=== PATIENT | male | born 1960 | race Caucasian/White ===

== ENCOUNTER 2020-07-02 10:49 | Inpatient (IN) | payer BC, OTHER ==
[~2020-07-02] VITALS: Ht 180 cm; Wt 97.5 kg
[2020-07-02] MEDS ORDERED: ASPIRIN 81 MG CHEW (CHILDREN'S ASA) PO ONE (11:15)
[2020-07-02 11:24] LABS: BASOPHILS # (AUTO) 0.1 10^3/uL (0.0-0.1); BASOPHILS % (AUTO) 1 % (0-10); EOSINOPHILS # (AUTO) 0.1 10^3/uL (0.0-0.3); EOSINOPHILS % (AUTO) 1 % (0-10); HEMATOCRIT 44 % (40-54); HEMOGLOBIN 14.7 g/dL (13.3-17.7); LYMPHOCYTES # (AUTO) 1.6 10^3/uL (1.0-4.0); LYMPHOCYTES % (AUTO) 17 % (12-44); MEAN CORPUSCULAR HEMOGLOBIN 29 pg (25-34); MEAN CORPUSCULAR HGB CONC 33 g/dL (32-36); MEAN CORPUSCULAR VOLUME 87 fL (80-99); MEAN PLATELET VOLUME 10.9 fL (9.0-12.2); MONOCYTES # (AUTO) 0.7 10^3/uL (0.0-1.0); MONOCYTES % (AUTO) 7 % (0-12); NEUTROPHILS # (AUTO) 6.6 10^3/uL (1.8-7.8); NEUTROPHILS % (AUTO) 73 % (42-75); PLATELET COUNT 291 10^3/uL (130-400)
[2020-07-02 11:28] LABS: ALBUMIN 4.2 GM/DL (3.2-4.5); CHLORIDE 107 MMOL/L (98-107); POTASSIUM 3.6 MMOL/L (3.6-5.0); SODIUM 142 MMOL/L (135-145)
[2020-07-02 11:29] LABS: CALCIUM 8.8 MG/DL (8.5-10.1)
[2020-07-02 11:30] LABS: GLUCOSE 109 MG/DL (70-105); TOTAL PROTEIN 7.2 GM/DL (6.4-8.2)
[2020-07-02 11:31] LABS: CARBON DIOXIDE 23 MMOL/L (21-32); PROTHROMBIN TIME PATIENT 13.9 SEC (12.2-14.7)
[2020-07-02 11:32] LABS: BILIRUBIN,TOTAL 0.9 MG/DL (0.1-1.0)
[2020-07-02 11:33] LABS: ALKALINE PHOSPHATASE 82 U/L (40-136)
[2020-07-02 11:34] LABS: CREATININE SERUM 1.09 MG/DL (0.60-1.30); GFR ESTIMATED > 60
[2020-07-02 11:35] LABS: BUN/CREATININE RATIO 23
[2020-07-02 11:37] LABS: ALANINE AMINOTRANSFERASE 36 U/L (0-55); MAGNESIUM 1.9 MG/DL (1.6-2.4)
--- NOTE | 2020-07-02 11:51 | ED Chest Pain ---
General Chief Complaint: Chest Pain Stated Complaint: CP Nursing Triage Note: PT AMB TO ROOM 6 STATES HE HAD COVID IN MAY AND HAS HAD SOA AND FATIGUE SINCE. STATES HE HAS HAD SOME CHEST TIGHTNESS THAT OCCURS MOSTLY WHEN HE IS WALKING OR EXERTING HIMSELF. WENT TO URGENT CARE AND THEY SENT HIM HERE BECAUSE HIS EKG WAS ABNORMAL. Nursing Sepsis Screen: No Definite Risk Source: patient Exam Limitations: no limitations (BRUNA ESCOBEDO MED STUDENT) History of Present Illness Date Seen by Provider: Jul 02, 2020 Time Seen by Provider: 11:00 Initial Comments This is a 60 year old male presenting to the Emergency Department via ambulation for a chief complaint of chest tightness. The patient states he had Covid and ended his quarantine on June 14. During that time, he had shortness of breath. He's reported chest tightness and shortness of breath with exertion and walking that has been constant for the past week. He's tried albuterol which helps. He denies taking Aspirin today but has taken Alieve. He jokingly states he hasn't seen a physician for the past 40 years or quiet a while. Timing/Duration: 1 week (BRUNA ESCOBEDO MED STUDENT) Initial Comments Patient states he has no tightness or shortness of air unless he is exerting himself. He did use albuterol this morning but that did not give him lasting relief. He seemed to improve a little bit after his quarantine but over the past week has been feeling worse again. He has no known history of coronary artery disease but has not had any cardiac work-up in the past. (DEB HANSON MD) Allergies and Home Medications Allergies Coded Allergies: No Known Drug Allergies (Unverified , 07/02/20) Home Medications Cartilage/Collagen/Bor/Hyalur 1 Each Tablet, 1 EACH PO DAILY, (Reported) Docusate Sodium 100 Mg Capsule, 100 MG PO DAILY, (Reported) Naproxen Sodium 220 Mg Tablet, 220 MG PO TID PRN for PAIN-MILD (1-4), (Reported) Omeprazole 20 Mg Tab.rap.dr, 20 MG PO DAILY, (Reported) Patient Home Medication List Home Medication List Reviewed: Yes (DEB HANSON MD) Review of Systems Review of Systems Constitutional: no symptoms reported EENTM: No Symptoms Reported Respiratory: See HPI Cardiovascular: See HPI Gastrointestinal: No Symptoms Reported Genitourinary: No Symptoms Reported Musculoskeletal: no symptoms reported Skin: no symptoms reported Psychiatric/Neurological: No Symptoms Reported Endocrine: No Symptoms Reported Hematologic/Lymphatic: No Symptoms Reported (DEB HANSON MD) Past Wovjqnv-Ydvhyx-Uwvkwl Hx Past Med/Social Hx: Reviewed Nursing Past Med/Soc Hx (DEB HANSON MD) Patient Social History Alcohol Use: Regular Use Alcohol Beverage of Choice: Beer, Whiskey Drug of Choice: POT 2nd Hand Smoke Exposure: Yes Recent Infectious Disease Expo: No Recent Hopitalizations: No (BRUNA ESCOBEDO Recombine JOIE) Seasonal Allergies Seasonal Allergies: No (BRUNA ESCOBEDO) Past Medical History Respiratory: No Cardiac: No Neurological: No Genitourinary: No Gastroesophageal Reflux Musculoskeletal: No Endocrine: No HEENT: No Cancer: No Psychosocial: No Integumentary: No Blood Disorders: No (BRUNA ESCOBEDO) Physical Exam Vital Signs Vital Signs - First Documented 07/02/20 07/02/20 10:50 11:00 Temp 35.6 Pulse 84 Resp 16 B/P (MAP) 163/137 (146) Pulse Ox 94 O2 Delivery Room Air O2 Flow Rate 0 (DEB HANSON MD) Vital Signs Capillary Refill : Less Than 3 Seconds (BRUNA ESCOBEDO STUDENT) Height, Weight, BMI Height: '" Weight: lbs. oz. kg; 32.00 BMI Method: (BRUNA ESCOBEDO Recombine STUDENT) General Appearance: No Apparent Distress, WD/WN HEENT: PERRL/EOMI, Normal ENT Inspection Neck: Normal Inspection Respiratory: Lungs Clear, Normal Breath Sounds, No Accessory Muscle Use Cardiovascular: Regular Rate, Rhythm, No Edema, No Murmur, Normal Peripheral Pulses Gastrointestinal: Normal Bowel Sounds, Non Tender, Soft Extremity: Normal Inspection, Non Tender, No Calf Tenderness, No Pedal Edema, Other (Negative Matthew) Neurologic/Psychiatric: Alert, Oriented x3, No Motor/Sensory Deficits, Normal Mood/Affect, clam sorter II-XII Norm as Tested Skin: Normal Color, Warm/Dry (DEB HANSON MD) Progress/Results/Core Measures Results/Orders Lab Results Laboratory Tests Test 07/02/20 10:50 Range/Units White Blood Count 9.0 4.3-11.0 10^3/uL Red Blood Count 5.06 4.30-5.52 10^6/uL Hemoglobin 14.7 13.3-17.7 g/dL Hematocrit 44 40-54 % Mean Corpuscular Volume 87 80-99 fL Mean Corpuscular Hemoglobin 29 25-34 pg Mean Corpuscular Hemoglobin Concent 33 32-36 g/dL Red Cell Distribution Width 14.2 10.0-14.5 % Platelet Count 291 130-400 10^3/uL Mean Platelet Volume 10.9 9.0-12.2 fL Immature Granulocyte % (Auto) 0 % Neutrophils (%) (Auto) 73 42-75 % Lymphocytes (%) (Auto) 17 12-44 % Monocytes (%) (Auto) 7 0-12 % Eosinophils (%) (Auto) 1 0-10 % Basophils (%) (Auto) 1 0-10 % Neutrophils # (Auto) 6.6 1.8-7.8 10^3/uL Lymphocytes # (Auto) 1.6 1.0-4.0 10^3/uL Monocytes # (Auto) 0.7 0.0-1.0 10^3/uL Eosinophils # (Auto) 0.1 0.0-0.3 10^3/uL Basophils # (Auto) 0.1 0.0-0.1 10^3/uL Immature Granulocyte # (Auto) 0.0 0.0-0.1 10^3/uL Prothrombin Time 13.9 12.2-14.7 SEC INR Comment 1.0 0.8-1.4 Activated Partial Thromboplast Time 28 24-35 SEC D-Dimer 1.49 H 0.00-0.49 UG/ML Sodium Level 142 135-145 MMOL/L Potassium Level 3.6 3.6-5.0 MMOL/L Chloride Level 107 98-107 MMOL/L Carbon Dioxide Level 23 21-32 MMOL/L Anion Gap 12 5-14 MMOL/L Blood Urea Nitrogen 25 H 7-18 MG/DL Creatinine 1.09 0.60-1.30 MG/DL Estimat Glomerular Filtration Rate > 60 BUN/Creatinine Ratio 23 Glucose Level 109 H 70-105 MG/DL Calcium Level 8.8 8.5-10.1 MG/DL Corrected Calcium 8.6 8.5-10.1 MG/DL Magnesium Level 1.9 1.6-2.4 MG/DL Total Bilirubin 0.9 0.1-1.0 MG/DL Aspartate Amino Transf (AST/SGOT) 32 5-34 U/L Alanine Aminotransferase (ALT/SGPT) 36 0-55 U/L Alkaline Phosphatase 82 40-136 U/L Myoglobin 138.5 H 10.0-92.0 NG/ML Troponin I 0.044 H <0.028 NG/ML C-Reactive Protein High Sensitivity 1.52 H 0.00-0.50 MG/DL B-Type Natriuretic Peptide 1776.6 H <100.0 PG/ML Total Protein 7.2 6.4-8.2 GM/DL Albumin 4.2 3.2-4.5 GM/DL Procalcitonin 0.04 <0.10 NG/ML (DEB HANSON MD) My Orders Orders - DEB HANSON MD Aspirin Chewable Tablet (Baby Aspirin Ch (07/02/20 11:15) Fibrin Degradation Products (07/02/20 11:04) Hs C Reactive Protein (07/02/20 11:04) Procalcitonin (Pct) (07/02/20 11:04) Cbc With Automated Diff (07/02/20 11:17) Magnesium (07/02/20 11:17) Chest 1 View, Ap/Pa Only (07/02/20 11:17) Ekg Tracing (07/02/20 11:17) Comprehensive Metabolic Panel (07/02/20 11:17) Myoglobin Serum (07/02/20 11:17) Protime With Inr (07/02/20 11:17) Partial Thromboplastin Time (07/02/20 11:17) O2 (07/02/20 11:17) Monitor-Rhythm Ecg Trace Only (07/02/20 11:17) Lipid Panel (07/03/20 05:00) Ed Iv/Invasive Line Start (07/02/20 11:17) Troponin I (07/02/20 11:17) Ct Angio Chest W (07/02/20 11:55) Iohexol Injection (Omnipaque 350 Mg/Ml 1 (07/02/20 12:15) Received Contrast (Hold Metformin- Contr (07/02/20 12:15) Sodium Chloride Flush (Catheter Flush Sy (07/02/20 12:15) Ns (Ivpb) (Sodium Chloride 0.9% Ivpb Bag (07/02/20 12:15) BNP (07/02/20 13:15) Echo W Doppler/Color Flow (07/02/20 13:52) Metoprolol Succinate (Xl) Tab (Toprol Xl (07/02/20 14:00) (DEB HANSON MD) Medications Given in ED Current Medications Medications Dose Ordered Sig/Mario Route Start Time Stop Time Status Last Admin Dose Admin Aspirin 324 mg ONCE ONCE PO 07/02/20 11:15 07/02/20 11:16 DC 07/02/20 11:19 324 MG Iohexol 100 ml ONCE ONCE IV 07/02/20 12:15 07/02/20 12:16 DC 07/02/20 12:51 83 ML Sodium Chloride 10 ml NEEDED PRN IV 07/02/20 12:15 07/02/20 15:45 DC 07/02/20 12:51 10 ML Sodium Chloride 100 ml ONCE ONCE IV 07/02/20 12:15 07/02/20 12:16 DC 07/02/20 12:51 80 ML (DEB HANSON MD) Vital Signs/I&O 07/02/20 07/02/20 10:50 11:00 Temp 35.6 Pulse 84 Resp 16 B/P (MAP) 163/137 (146) Pulse Ox 94 O2 Delivery Room Air Room Air O2 Flow Rate 0 (DEB HANSON MD) Blood Pressure Mean: 146 Progress Progress Note : Time: 11:55 Progress Note - Patient was given chewable Aspirin. EKG was taken due to his abnormal EKG in the walk-in clinic. An IV line has been established. Troponin is elevated. D- dimer was slightly elevated. CXR was ordered, results pending. (BRUNA ESCOBEDO MED STUDENT) Progress Note : Progress Note CT angiogram showed effusion and some groundglass opacity but no pulmonary emboli. Patient was additionally treated with Toprol-XL. I discussed the case with Dr. Dela Cruz and Dr. bAdi. Patient will be admitted for observation. Serial troponin will be obtained. An echocardiogram is being obtained in the ER. (DEB HANSON MD) Initial ECG Impression Date: Jul 02, 2020 Initial ECG Impression Time: 10:28 Initial ECG Rate: 83 Comment Sinus rhythm with multiple PVCs. Repolarization abnormality likely representing LVH. No definitive ST elevation. (DEB HANSON MD) Diagnostic Imaging Diagonstic Imaging: CT Plain Films/CT/US/NM/MRI: chest Comments NAME: JORGE TEIXEIRA [facility] REC#: [id number] PT STATUS: REG ER : 1960 PHYSICIAN: DEB HANSON MD ADMIT DATE: 07/02/20/ER Draft Date of Exam:07/02/20 CT ANGIO CHEST W PROCEDURE: CT angiography of the chest with contrast. TECHNIQUE: Multiple contiguous axial images were obtained through the chest after uneventful bolus administration of intravenous contrast. 3D reconstructed CTA MIP acquisitions were also performed. Auto Exposure Controls were utilized during the CT exam to meet ALARA standards for radiation dose reduction. INDICATION: Patient had COVID in May, now shortness of breath with exertion. FINDINGS: There are no intraluminal pulmonary arterial filling defects. There were no findings of pulmonary arterial embolus. The thoracic aorta is patent and nonaneurysmal. There are bilateral pleural effusions greater right nonloculated to a depth maximal 2.7 cm. Some mild perihilar septal thickening and mild scattered groundglass opacities greatest in the lower lobes. No bronchiectasis blebs bullous disease or air cysts. Lung volumes symmetric and normal. The visualized upper abdomen unremarkable. IMPRESSION: Bilateral small effusions, groundglass density and septal thickening may be the sequelae of COVID or reflect pulmonary edema. No pneumothorax. Negative for PE. Dictated on workstation # [id number] Dict: 07/02/20 1256 Trans: 07/02/20 1321 [facility] [id number] Interpreted by: LAURA DE SOUZA Electronically signed by: Time of Consult: 12:56 Diagonstic Imaging: Xray Plain Films/CT/US/NM/MRI: chest Comments NAME: JORGE TEIXEIRA [facility] REC#: [id number] PT STATUS: REG ER : 1960 PHYSICIAN: DEB HANSON MD ADMIT DATE: 07/02/20/ER Signed Date of Exam:07/02/20 CHEST 1 VIEW, AP/PA ONLY EXAMINATION: Chest 1 view, ap/pa only. INDICATION: Shortness of air and fatigue. COMPARISON: None available. FINDINGS: Abnormal masslike opacity in the right perihilar region. No pleural effusion or pneumothorax. The heart is enlarged. Interlobular septal thickening is present. IMPRESSION: 1. Abnormal masslike opacity in the right perihilar region may be due to summation of pulmonary vasculature. However, CT chest with IV contrast is recommended to evaluate the possibility of mass or lymphadenopathy 2. Cardiomegaly with interstitial opacities suggests mild pulmonary edema. Dictated by: Dictated on workstation # [id number] Dict: 07/02/20 1147 Trans: 07/02/20 1205 [facility] [id number] Interpreted by: EUSEBIA COLLADO MD Electronically signed by: EUSEBIA COLLADO MD 07/02/20 1205 Time of Consult: 11:47 (BRUNA ESCOBEDO) Comments CT angiogram reviewed by me and report reviewed. Comments Chest x-ray viewed by me and report reviewed. (DEB HANSON MD) Departure Communication (Admissions) Time/Spoke to Admitting Phy: 13:50 Dr. Abdi Time/Spoke to Consulting Phy: 11:55 Dr. Martínez (DEB HANSON MD) Impression Primary Impression: Dyspnea on exertion Additional Impression: Chest tightness Disposition: ADMITTED INPATIENT Condition: Stable Admissions Decision to Admit Reason: Admit from ER (General) Decision to Admit/Date: Jul 02, 2020 Time/Decision to Admit Time: 11:55 (DEB HANSON MD) Departure-Patient Inst. Referrals: NO,LOCAL PHYSICIAN (PCP/Family) Primary Care Physician BRUNA ESCOBEDO STUDENT Jul 02, 2020 11:51 DEB HANSON MD Jul 02, 2020 14:19
[2020-07-02] MEDS ORDERED: HOLD METFORMIN - RECEIVED CONTRAST 20 ML VIAL IV SCH (12:15)
[2020-07-02] MEDS ORDERED: CATHETER FLUSH 10 ML SYR IV PRN ×2 (12:15→15:45)
[2020-07-02] MEDS ORDERED: NS 100 ML (IVPB) BAG IV ONE (12:15)
[2020-07-02] MEDS ORDERED: IOHEXOL 350 MG/ML 100 ML (OMNIPAQUE 350) VIAL IV ONE (12:15)
--- NOTE | 2020-07-02 13:22 | Diagnostic Imaging Report ---
PROCEDURE: CT angiography of the chest with contrast. TECHNIQUE: Multiple contiguous axial images were obtained through the chest after uneventful bolus administration of intravenous contrast. 3D reconstructed CTA MIP acquisitions were also performed. Auto Exposure Controls were utilized during the CT exam to meet ALARA standards for radiation dose reduction. INDICATION: Patient had COVID in May, now shortness of breath with exertion. FINDINGS: There are no intraluminal pulmonary arterial filling defects. There were no findings of pulmonary arterial embolus. The thoracic aorta is patent and nonaneurysmal. There are bilateral pleural effusions greater right nonloculated to a depth maximal 2.7 cm. Some mild perihilar septal thickening and mild scattered groundglass opacities greatest in the lower lobes. No bronchiectasis blebs bullous disease or air cysts. Lung volumes symmetric and normal. The visualized upper abdomen unremarkable. IMPRESSION: Bilateral small effusions, groundglass density and septal thickening may be the sequelae of COVID or reflect pulmonary edema. No pneumothorax. Negative for PE. Dictated by: Dictated on workstation # [id number]
[2020-07-02] MEDS ORDERED: meTOproloL SUCCINATE 50 MG (TOPROL XL) TAB PO SCH (14:00)
--- NOTE | 2020-07-02 14:45 | Consultation-Cardiology ---
HPI-Cardiology Cardiology Consultation: Date of Consultation 07/02/20 Time Seen by a Provider: 15:25 Date of Admission 07-02-20 Attending Physician Thao Abdi MD Admitting Physician No,Local Physician Consulting Physician Thomas Martínez MD HPI: Chief Complaint: Progressive dyspnea Elevated troponin Mr. Teixeira is a 60yr old male admitted to 418 form the ED with increasing SOB and chest tightness. He reports he was diagnosed with COVID in late May 2020. He just returned to work recently. 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 He reports over the last week he has had progressive SOB with orthopnea. He reports chest tightness with assoc SOB with minimal exertion. He states the chest tightness resolves with rest. He denies any c/o palpitations, syncope or near syncope. No c/o LE swelling. No c/o recent n/v/d. No c/o recent fever or chills. He states he takes Aleeve daily for joint and back pain. He reports he has not been seen by a physician in 10 yrs. Review of Systems-Cardiology Review of Systems Constitutional: No chills, No fever; malaise Eyes: No vision change Ears/Nose/Throat: No recent hearing loss Respiratory: As described under HPI Cardiovascular: As described under HPI Gastrointestinal: constipation; No diarrhea, No nausea, No vomiting Genitourinary: no symptoms reported Musculoskeletal: joint pain Skin: No rash on exposed areas, No ulcerations on exposed areas Psychiatric/Neurological: No anxiety, No depression, No seizure, No focal w eakness, No syncope Hematologic: No bleeding abnormalities JMT-Htxzok-Xcdhzp Hx Patient Social History 2nd Hand Smoke Exposure: Yes Past Medical History PMH As described under Assessment. Family Medical History Family Medical History: He reports his mother had CAD and CHF. Allergies and Home Medications Allergies Coded Allergies: No Known Drug Allergies (Unverified , 07/02/20) Home Medications Aspirin 81 Mg Tablet., 81 MG PO DAILY Prescribed by: ANA LAURA GARZA on 07/05/20 1225 Cartilage/Collagen/Bor/Hyalur 1 Each Tablet, 1 EACH PO DAILY, (Reported) Carvedilol 12.5 Mg Tablet, 12.5 MG PO BID Prescribed by: ANA LAURA GARZA on 07/05/20 1225 Docusate Sodium 100 Mg Capsule, 100 MG PO DAILY, (Reported) Enalapril Maleate 10 Mg Tablet, 10 MG PO BID Prescribed by: ANA LAURA GARZA on 07/05/20 1225 Furosemide 40 Mg Tablet, 40 MG PO DAILY Prescribed by: ANA LAURA GARZA on 07/05/20 1225 Naproxen Sodium 220 Mg Tablet, 220 MG PO TID PRN for PAIN-MILD (1-4), (Reported) Omeprazole 20 Mg Tab.rap.dr, 20 MG PO DAILY, (Reported) Potassium Chloride 10 Meq Tablet.er, 10 MEQ PO BID WITH MEALS Prescribed by: ANA LAURA GARZA on 07/05/20 1225 Physical Exam-Cardiology Physical Exam Vital Signs/I&O 07/07/20 00:00 Intake Total 1200 ml Balance 1200 ml Capillary Refill : Less Than 3 Seconds Constitutional: AAO x 3, well-developed, well-nourished HEENT: PERRL, hearing is well preserved, oral hygience is good Neck: No carotid bruit; carotid pulses are 2 + bilaterally Respiratory: No accessory muscle use, No respiratory distress; chest expansion is symmetric, chest is bilaterally symmetric, other (dyspneic with minimal activity and conversation; diminished lower lobes bilat) Cardiovascular: regular rate-rhythm; No JVD; S1 and S2, systolic murmur Gastrointestinal: No tender; soft, round, audible bowel sounds Extremities: no lower extremity edema bilateral Neurologic/Psychiatric: grossly intact (moves all extremities) Skin: No rash on exposed areas, No ulcerations on exposed areas Data Review Labs Microbiology 07/03/20 MRSA Screen - Final, Complete MRSA not isolated Radiology NAME: JORGE TEIXEIRA [facility] REC#: [id number] PT STATUS: REG ER : 1960 PHYSICIAN: DEB HANSON MD ADMIT DATE: 07/02/20/ER Draft Date of Exam:07/02/20 CT ANGIO CHEST W PROCEDURE: CT angiography of the chest with contrast. TECHNIQUE: Multiple contiguous axial images were obtained through the chest after uneventful bolus administration of intravenous contrast. 3D reconstructed CTA MIP acquisitions were also performed. Auto Exposure Controls were utilized during the CT exam to meet ALARA standards for radiation dose reduction. INDICATION: Patient had COVID in May, now shortness of breath with exertion. FINDINGS: There are no intraluminal pulmonary arterial filling defects. There were no findings of pulmonary arterial embolus. The thoracic aorta is patent and nonaneurysmal. There are bilateral pleural effusions greater right nonloculated to a depth maximal 2.7 cm. Some mild perihilar septal thickening and mild scattered groundglass opacities greatest in the lower lobes. No bronchiectasis blebs bullous disease or air cysts. Lung volumes symmetric and normal. The visualized upper abdomen unremarkable. IMPRESSION: Bilateral small effusions, groundglass density and septal thickening may be the sequelae of COVID or reflect pulmonary edema. No pneumothorax. Negative for PE. Dictated on workstation # [id number] Dict: 07/02/20 1256 Trans: 07/02/20 1321 [facility] [id number] Interpreted by: LAURA DE SOUZA Electronically signed by: A/P-Cardiology Assessment/Admission Diagnosis Acute systolic CHF Dilated cardiomyopathy with LVEF 25-30%. Mod diffuse hypokinesis. LA mild to m od dilatation. Mod MR. Mod to severe TR. PASP 55-60 mmHg. per echocardiogram of 07-02-20 Pulmonary hypertension Minimally elevated troponin prob Type 2 ND H/O COVID (+) May 2020 GERD Chronic joint/back pain Marijuana use - cessation advised Discussion and Recomendations Dilated cardiomyopathy - treat with IV diuretics, add ROBYN (-), change BB to carvedilol - titrate doses to tolerance Lovenox DVT prophylaxis HTN - tx as noted above Minimally elevated troponin, likely Type 2 ND Continue ASA Monitor lab Advise sleep studies as an out pt Advise cessation of marijuana use Further recs will be based on his hospital course We would like to thank medical services for this consult YARELI CHERRY Jul 02, 2020 14:45
[2020-07-02 15:35] VITALS: BP 189/104
[2020-07-02] MEDS ORDERED: ONDANSETRON 4 MG/2 ML (SDV) Z0FRAN IVP PRN (15:45)
[2020-07-02] MEDS ORDERED: morphine INJ 4 MG/ML 1 ML (VIAL/SYRINGE) IV PRN (15:45)
[2020-07-02] MEDS ORDERED: NITROGLYCERIN 0.4 MG SL TABS BTL 25'S SL PRN (15:45)
[2020-07-02] MEDS ORDERED: DOCU-238 PO (15:47)
[2020-07-02] MEDS ORDERED: CART1TAB5 PO (15:47)
[2020-07-02] MEDS ORDERED: OMEP-401 PO (15:47)
[2020-07-02] MEDS ORDERED: NAPR220T66 PO (15:47)
--- NOTE | 2020-07-02 15:47 | NUR ---
SPOKE WITH PT TO COMPLETE THE MED REC PT DENIES TAKING ANY PRESCRIPTION MEDICATIONS OTC MEDS: SHANNAN JAMIL [facility] STOOL SOFTENER
[2020-07-02] MEDS ORDERED: FUROSEMIDE 40 MG/4 ML INJ (LASIX) IVP NR (16:00)
[2020-07-02] MEDS ORDERED: lisINopril 20 MG (PRINIVIL) TABLET PO NR (16:15)
[2020-07-02] MEDS ORDERED: lisINopril 40 MG (PRINIVIL) TABLET PO ONE (16:15)
[2020-07-02] MEDS ORDERED: KCL 20 MEQ TAB (K-DUR) PO NR (16:15)
--- NOTE | 2020-07-02 16:59 | Consultation-Cardiology ---
HPI-Cardiology Cardiology Consultation: Date of Consultation 07/02/20 Time Seen by a Provider: 16:20 Date of Admission Attending Physician Thao Abdi MD Admitting Physician No,Local Physician Consulting Physician LUKASZ CONNELL MD, MA, FACP, FACC, FSCAI, CCDS HPI: Chief Complaint: Reason for consultation: Progressive dyspnea, elevated troponin HPI Mr. Gutierrez is a 60yr old male admitted to 418 form the ED with increasing SOB and chest tightness. He reports he was diagnosed with COVID in late May 2020. He just returned to work recently. 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 He reports over the last week he has had progressive SOB with orthopnea. He reports chest tightness with assoc SOB with minimal exertion. He states the chest tightness resolves with rest. He denies any c/o palpitations, syncope or near syncope. No c/o LE swelling. No c/o recent n/v/d. No c/o recent fever or chills. He states he takes Aleeve daily for joint and back pain. He reports he has not been seen by a physician in 10 yrs. Review of Systems-Cardiology Review of Systems Constitutional: No chills, No fever; malaise Eyes: No vision change Ears/Nose/Throat: No recent hearing loss Respiratory: As described under HPI Cardiovascular: As described under HPI Gastrointestinal: constipation; No diarrhea, No nausea, No vomiting Genitourinary: no symptoms reported Musculoskeletal: joint pain Skin: No rash on exposed areas, No ulcerations on exposed areas Psychiatric/Neurological: No anxiety, No depression, No seizure, No focal weakness, No syncope Hematologic: No bleeding abnormalities AFM-Axzexe-Jupwyr Hx Patient Social History Smoking Status: Former Smoker 2nd Hand Smoke Exposure: Yes Have you traveled recently?: No Alcohol Use?: Yes Substance type: Marijuana Pt feels they are or have been: No Past Medical History PMH As described under Assessment. Family Medical History Family Medical History: He reports his mother had CAD and CHF. Allergies and Home Medications Allergies Coded Allergies: No Known Drug Allergies (Unverified , 07/02/20) Home Medications Cartilage/Collagen/Bor/Hyalur 1 Each Tablet, 1 EACH PO DAILY, (Reported) Docusate Sodium 100 Mg Capsule, 100 MG PO DAILY, (Reported) Naproxen Sodium 220 Mg Tablet, 220 MG PO TID PRN for PAIN-MILD (1-4), (Reported) Omeprazole 20 Mg Tab.rap.dr, 20 MG PO DAILY, (Reported) Patient Home Medication List Home Medication List Reviewed: Yes Physical Exam-Cardiology Physical Exam Vital Signs/I&O 07/02/20 07/02/20 07/02/20 07/02/20 10:50 11:00 15:16 15:35 Temp 35.6 35.6 Pulse 84 62 92 Resp 16 18 22 B/P (MAP) 163/137 (146) 135/102 189/104 (132) Pulse Ox 94 91 97 O2 Delivery Room Air Room Air Room Air Room Air O2 Flow Rate 0 Capillary Refill : Less Than 3 Seconds Constitutional: AAO x 3, well-developed, well-nourished HEENT: PERRL, hearing is well preserved, oral hygience is good Neck: No carotid bruit; carotid pulses are 2 + bilaterally Respiratory: No accessory muscle use, No respiratory distress; chest expansion is symmetric, chest is bilaterally symmetric, other (dyspneic with minimal activity and conversation; diminished lower lobes bilat) Cardiovascular: regular rate-rhythm; No JVD; S1 and S2, systolic murmur Gastrointestinal: No tender; soft, round, audible bowel sounds Extremities: no lower extremity edema bilateral Neurologic/Psychiatric: grossly intact (moves all extremities) Skin: No rash on exposed areas, No ulcerations on exposed areas Data Review Labs Laboratory Tests 07/02/20 10:50: White Blood Count 9.0, Red Blood Count 5.06, Hemoglobin 14.7, Hematocrit 44, Mean Corpuscular Volume 87, Mean Corpuscular Hemoglobin 29, Mean Corpuscular Hemoglobin Concent 33, Red Cell Distribution Width 14.2, Platelet Count 291, Mean Platelet Volume 10.9, Immature Granulocyte % (Auto) 0, Neutrophils (%) (Auto) 73, Lymphocytes (%) (Auto) 17, Monocytes (%) (Auto) 7, Eosinophils (%) (Auto) 1, Basophils (%) (Auto) 1, Neutrophils # (Auto) 6.6, Lymphocytes # (Auto) 1.6, Monocytes # (Auto) 0.7, Eosinophils # (Auto) 0.1, Basophils # (Auto) 0.1, Immature Granulocyte # (Auto) 0.0, Prothrombin Time 13.9, INR Comment 1.0, Activated Partial Thromboplast Time 28, D-Dimer 1.49H, Sodium Level 142, Potassium Level 3.6, Chloride Level 107, Carbon Dioxide Level 23, Anion Gap 12, Blood Urea Nitrogen 25H, Creatinine 1.09, Estimat Glomerular Filtration Rate > 60, BUN/Creatinine Ratio 23, Glucose Level 109H, Calcium Level 8.8, Corrected Calcium 8.6, Magnesium Level 1.9, Total Bilirubin 0.9, Aspartate Amino Transf (AST/SGOT) 32, Alanine Aminotransferase (ALT/SGPT) 36, Alkaline Phosphatase 82, Myoglobin 138.5H, Troponin I 0.044H, C-Reactive Protein High Sensitivity 1.52H, B-Type Natriuretic Peptide 1776.6H, Total Protein 7.2, Albumin 4.2, Procalcitonin 0.04 A/P-Cardiology Assessment/Admission Diagnosis Acute systolic CHF Dilated cardiomyopathy; echocardiogram of 07-02-20: LVEF 25-30%. Mod diffuse hypokinesis. LA mild to mod dilatation. Mod MR. Mod to severe TR. PASP 55-60 mmHg. Pulmonary hypertension Minimally elevated troponin prob Type 2 [place] H/O COVID (+) May 2020 GERD Chronic joint/back pain Marijuana use - cessation advised Discussion and Recomendations Dilated cardiomyopathy - treat with IV diuretics, add ROBYN (-), change BB to carvedilol - titrate doses to tolerance Lovenox DVT prophylaxis HTN - tx as noted above Minimally elevated troponin, likely Type 2 NV Continue ASA Monitor lab Advise sleep studies as an out pt Advise cessation of marijuana use Further recs will be based on his hospital course We would like to thank Medical services for this consult LUKASZ CONNELL MD FACP FAC CCDS Jul 02, 2020 16:59
[2020-07-02] MEDS ORDERED: FUROSEMIDE 40 MG/4 ML INJ (LASIX) IVP SCH (17:00)
[2020-07-02] MEDS ORDERED: KCL 20 MEQ TAB (K-DUR) PO SCH (18:00)
[2020-07-02 19:40] VITALS: BP 112/72
[2020-07-02] MEDS: CARVEDILOL 12.5 MG (COREG) TABLET PO SCH (19:54)
[2020-07-02] MEDS: ENALAPRIL 5 MG (VASOTEC) TAB PO SCH (19:55)
[2020-07-02] MEDS: CATHETER FLUSH 10 ML SYR IV SCH (19:56)
[2020-07-02 20:58] VITALS: BP 112/72
[2020-07-02] MEDS ORDERED: RT-ALBUTEROL INHALER HFA (VENTOLIN HFA) 18 GM IH PRN (21:15)
[2020-07-03] VITALS (7 sets, daily range): BP systolic 108–138; BP diastolic 58–85
[2020-07-03 06:05] LABS: CHLORIDE 107 MMOL/L (98-107); POTASSIUM 4.1 MMOL/L (3.6-5.0); SODIUM 138 MMOL/L (135-145)
[2020-07-03 06:06] LABS: CALCIUM 8.4 MG/DL (8.5-10.1)
[2020-07-03 06:07] LABS: GLUCOSE 127 MG/DL (70-105); TRIGLYCERIDES 121 MG/DL (<150); VLDL CHOLESTEROL 24 MG/DL (5-40)
[2020-07-03 06:08] LABS: CARBON DIOXIDE 21 MMOL/L (21-32)
[2020-07-03 06:10] LABS: CREATININE SERUM 0.87 MG/DL (0.60-1.30); GFR ESTIMATED > 60
[2020-07-03 06:12] LABS: BUN/CREATININE RATIO 23; CHOLESTEROL 135 MG/DL (< 200)
[2020-07-03 06:13] LABS: HDL CHOLESTEROL 28 MG/DL (40-60)
[2020-07-03] MEDS: FUROSEMIDE 40 MG/4 ML INJ (LASIX) IVP SCH ×2 (06:15→18:40)
[2020-07-03] MEDS: CATHETER FLUSH 10 ML SYR IV SCH ×3 (06:15→21:17)
[2020-07-03] MEDS ORDERED: RT-ALBUTEROL INHALER HFA (VENTOLIN HFA) 18 GM IH SCH (07:00)
[2020-07-03] MEDS ORDERED: meTOproloL SUCCINATE 50 MG (TOPROL XL) TAB PO SCH (09:00)
[2020-07-03] MEDS ORDERED: KCL 20 MEQ TAB (K-DUR) PO SCH ×2 (09:00→18:00)
[2020-07-03] MEDS ORDERED: lisINopril 40 MG (PRINIVIL) TABLET PO SCH (09:00)
[2020-07-03] MEDS: ENALAPRIL 5 MG (VASOTEC) TAB PO SCH (09:44)
[2020-07-03] MEDS: CARVEDILOL 12.5 MG (COREG) TABLET PO SCH ×2 (09:44→21:17)
[2020-07-03] MEDS: ASPIRIN E.C. 81 MG (ECOTRIN) TAB PO SCH (09:44)
--- NOTE | 2020-07-03 13:13 | History & Physical-Hospitalist ---
History of Present Illness HPI/Chief Complaint Peewee Gutierrez is a 60-year-old male with no known past medical history who presented with chest tightness. He denies chest pain. He reports feeling short of breath. He reports orthopnea and PND. He has not noticed any leg swelling. He denies fevers and chills. He has had a cough. He was sick with COVID about a month ago. He denies abdominal pain, nausea, vomiting, and diarrhea. He does not use tobacco. He drinks alcohol occasionally. He smokes marijuana occasionally. Source: patient Exam Limitations: no limitations Date Seen 07/03/20 Time Seen by a Provider: 09:35 Attending Physician Taz Hopper MD PCP No,Local Physician Referring Physician Date of Admission Jul 02, 2020 at 14:07 Home Medications & Allergies Home Medications Reviewed patient Home Medication Reconciliation performed by pharmacy medication reconciliations orthotic technician and/or nursing. Patients Allergies have been reviewed. Allergies Allergies Coded Allergies No Known Drug Allergies (Unverified07/02/20) Past Fhoenuj-Sfrzae-Drwvyo Hx Past Med/Social Hx: Reviewed and Corrections made Patient Social History Alcohol Use: Regular Use Alcohol Beverage of Choice: Beer, Whiskey Recreational Drug Use: Yes Drug of Choice: marijuana Smoking Status: Former Smoker 2nd Hand Smoke Exposure: Yes Recent Foreign Travel: No Contact w/other who traveled: No Recent Hopitalizations: No Recent Infectious Disease Expo: No Seasonal Allergies Seasonal Allergies: No Past Medical History Gastrointestinal: Gastroesophageal Reflux History of Blood Disorders: No Review of Systems Constitutional: no symptoms reported EENTM: no symptoms reported Respiratory: dyspnea on exertion, orthopnea, short of breath Cardiovascular: no symptoms reported Gastrointestinal: no symptoms reported Genitourinary: no symptoms reported Musculoskeletal: no symptoms reported Skin: no symptoms reported Psychiatric/Neurological: No Symptoms Reported Physical Exam Physical Exam Vital Signs Vital Signs - First Documented 07/02/20 07/02/20 07/03/20 10:50 11:00 11:08 Temp 35.6 Pulse 84 Resp 16 B/P (MAP) 163/137 (146) Pulse Ox 94 O2 Delivery Room Air O2 Flow Rate 0 FiO2 21 Capillary Refill : Less Than 3 SecondsLess Than 3 Seconds Height, Weight, BMI Height: '" Weight: lbs. oz. kg; 32.25 BMI Method: General Appearance: No Apparent Distress, Obese HEENT: PERRL/EOMI, Pharynx Normal Neck: Normal Inspection, Supple Respiratory: Lungs Clear, Normal Breath Sounds, No Respiratory Distress Cardiovascular: Regular Rate, Rhythm, No Murmur Gastrointestinal: Normal Bowel Sounds, Non Tender, Soft Extremity: Normal Inspection, Non Tender, Pedal Edema Neurologic/Psychiatric: Alert, Oriented x3, No Motor/Sensory Deficits, Normal Mood/Affect Skin: Normal Color, Warm/Dry Results Results/Procedures Labs Laboratory Tests 07/02/20 10:50 07/03/20 05:35 Patient resulted labs reviewed. 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 Chest xray consistent with CHF BNP significantly elevated Echo with EF 25-30%, global hypokinesis, elevated PASP Troponin mildly elevated, likely due to heart failure Started on Lasix, symptoms improving Started on Coreg and Enalapril Will likely need ischemic evaluation at some point with stress test or heart cath Marijuana use Alcohol use Recommend cessation Obesity Clinically significant, no acute management needs DVT prophylaxis: Lovenox Diagnosis/Problems Diagnosis/Problems (1) Acute HFrEF (heart failure with reduced ejection fraction) Status: Acute (2) Elevated troponin Status: Acute (3) Pulmonary hypertension Status: Acute (4) HTN (hypertension) Status: Acute (5) Obesity Status: Chronic (6) Marijuana use Status: Chronic (7) Alcohol use Status: Chronic (8) Former smoker Status: Chronic TAZ HOPPER MD Jul 03, 2020 13:12
[2020-07-03] MEDS: ENOXAPARIN 40 MG/0.4 ML (LOVENOX) SYR SC SCH (13:19)
--- NOTE | 2020-07-03 15:21 | Progress Note - Cardiology ---
Cardiology SOAP Progress Note Subjective: Less short of breath No cp or palp or syncope No focal weakness No n/v Gen malaise and tiredness Objective: I&O/Vital Signs 07/03/20 07/03/20 07/03/20 07/03/20 04:53 07:00 07:50 08:00 Temp 36.3 36.2 Pulse 69 81 70 Resp 18 20 B/P (MAP) 135/77 (96) 134/85 (101) Pulse Ox 95 97 96 O2 Delivery Room Air Room Air Room Air 07/03/20 07/03/20 07/03/20 07/03/20 08:13 11:08 12:00 13:00 Temp 36.2 36.4 Pulse 70 74 61 Resp 20 B/P (MAP) 138/78 (98) Pulse Ox 96 96 96 O2 Delivery Room Air Room Air FiO2 21 07/03/20 00:00 Intake Total 550 ml Balance 550 ml Constitutional: AAO x 3, well-developed, well-nourished Respiratory: No accessory muscle use, No respiratory distress; chest expansion is symmetric, chest is bilaterally symmetric, other (dyspneic with minimal activity and conversation; diminished lower lobes bilat) Cardiovascular: regular rate-rhythm; No JVD; S1 and S2, systolic murmur Gastrointestional: No tender; soft, round, audible bowel sounds Extremities: no lower extremity edema bilateral Neurologic/Psychiatric: grossly intact (moves all extremities) Skin: No rash on exposed areas, No ulcerations on exposed areas Results/Procedures: Labs Laboratory Tests 07/03/20 05:35: Sodium Level 138, Potassium Level 4.1, Chloride Level 107, Carbon Dioxide Level 21, Anion Gap 10, Blood Urea Nitrogen 20H, Creatinine 0.87, Estimat Glomerular Filtration Rate > 60, BUN/Creatinine Ratio 23, Glucose Level 127H, Calcium Level 8.4L, Magnesium Level 2.0, Triglycerides Level 121, Cholesterol Level 135, LDL Cholesterol Direct 98, VLDL Cholesterol 24, HDL Cholesterol 28L Laboratory Tests 07/02/20 10:50 07/03/20 05:35 A/P: Assessment: Acute systolic CHF Dilated cardiomyopathy; echocardiogram of 07-02-20: LVEF 25-30%. Mod diffuse hypokinesis. LA mild to mod dilatation. Mod MR. Mod to severe TR. PASP 55-60 mmHg. Pulmonary hypertension Minimally elevated troponin prob Type 2 [place] H/O COVID (+) May 2020 GERD Chronic joint/back pain Marijuana use - cessation advised Plan: Increase enalapril Reduce supple K Continue other meds Monitor labs Card cath tomorrow I discussed the rationale, procedure, risks, benefits, potential complications and alternatives of card cath and possible ad hoc cor intervention with him. He understands and wishes to proceed LUKASZ CONNELL MD FACP FAC CCDS Jul 03, 2020 15:21
[2020-07-03] MEDS: KCL 10 MEQ TAB (MICRO K) PO SCH (18:40)
[2020-07-03] MEDS ORDERED: ENALAPRIL 5 MG (VASOTEC) TAB PO SCH (21:00)
[2020-07-03] MEDS: ENALAPRIL 10 MG (VASOTEC) TAB PO SCH (21:16)
[2020-07-04] VITALS (7 sets, daily range): BP systolic 98–144; BP diastolic 61–84
[2020-07-04 05:05] LABS: CHLORIDE 103 MMOL/L (98-107); POTASSIUM 3.8 MMOL/L (3.6-5.0); SODIUM 138 MMOL/L (135-145)
[2020-07-04 05:06] LABS: CALCIUM 8.5 MG/DL (8.5-10.1)
[2020-07-04 05:07] LABS: GLUCOSE 105 MG/DL (70-105)
[2020-07-04 05:08] LABS: CARBON DIOXIDE 24 MMOL/L (21-32)
[2020-07-04 05:11] LABS: CREATININE SERUM 1.06 MG/DL (0.60-1.30); GFR ESTIMATED > 60
[2020-07-04 05:12] LABS: BUN/CREATININE RATIO 18
[2020-07-04] MEDS: FUROSEMIDE 40 MG/4 ML INJ (LASIX) IVP SCH (06:47)
[2020-07-04] MEDS: CATHETER FLUSH 10 ML SYR IV SCH ×3 (06:48→20:27)
[2020-07-04] MEDS: ENALAPRIL 10 MG (VASOTEC) TAB PO SCH ×2 (09:43→20:27)
[2020-07-04] MEDS: KCL 10 MEQ TAB (MICRO K) PO SCH ×2 (09:43→17:43)
[2020-07-04] MEDS: CARVEDILOL 12.5 MG (COREG) TABLET PO SCH ×2 (09:43→20:27)
[2020-07-04] MEDS: ASPIRIN E.C. 81 MG (ECOTRIN) TAB PO SCH (09:43)
--- NOTE | 2020-07-04 11:57 | Progress Note - Hospitalist ---
Subjective HPI/CC On Admission Date Seen by Provider: Jul 04, 2020 Time Seen by Provider: 10:20 Peewee Gutierrez is a 60-year-old male with no known past medical history who presented with chest tightness. He denies chest pain. He reports feeling short of breath. He reports orthopnea and PND. He has not noticed any leg swelling. He denies fevers and chills. He has had a cough. He was sick with COVID about a month ago. He denies abdominal pain, nausea, vomiting, and diarrhea. He does not use tobacco. He drinks alcohol occasionally. He smokes marijuana occasionally. Subjective/Events-last exam he is feeling better today. He did have a a very brief episode of left-sided chest pain which resolved spontaneously. He is not feeling short of breath. He has no other complaints or concerns. Objective Exam Vital Signs Vital Signs Date Time Temp Pulse Resp B/P (MAP) Pulse Ox O2 Delivery O2 Flow Rate FiO2 07/04/20 08:36 96 Room Air 07/04/20 08:00 36.0 62 18 120/80 (93) 07/03/20 11:08 21 07/02/20 11:00 0 Capillary Refill : Less Than 3 SecondsLess Than 3 Seconds General Appearance: No Apparent Distress, Obese Respiratory: Lungs Clear, Normal Breath Sounds, No Respiratory Distress Cardiovascular: Regular Rate, Rhythm, No Murmur Gastrointestinal: Normal Bowel Sounds, Non Tender, Soft Extremity: Normal Inspection, Non Tender, Pedal Edema Neurologic/Psychiatric: Alert, Oriented x3, No Motor/Sensory Deficits, Normal Mood/Affect Skin: Normal Color, Warm/Dry Results/Procedures Lab Laboratory Tests 07/04/20 04:27 Patient resulted labs reviewed. Imaging: Reviewed Imaging Report Assessment/Plan Assessment and Plan Assess & Plan/Chief Complaint Acute heart failure with reduced ejection fraction Pulmonary hypertension Elevated troponin Hypertension Possible viral cardiomyopathy due to COVID Chest xray consistent with CHF BNP significantly elevated Echo with EF 25-30%, global hypokinesis, elevated PASP Troponin mildly elevated, likely due to heart failure Transition to oral Lasix Continue Coreg and Enalapril Plan for left heart catheterization tomorrow Marijuana use Alcohol use Recommend cessation Obesity Clinically significant, no acute management needs DVT prophylaxis: Lovenox Diagnosis/Problems Diagnosis/Problems (1) Acute HFrEF (heart failure with reduced ejection fraction) Status: Acute (2) Elevated troponin Status: Acute (3) Pulmonary hypertension Status: Acute (4) HTN (hypertension) Status: Acute (5) Obesity Status: Chronic (6) Marijuana use Status: Chronic (7) Alcohol use Status: Chronic (8) Former smoker Status: Chronic TAZ HOPPER MD Jul 04, 2020 11:57
[2020-07-04] MEDS: ENOXAPARIN 40 MG/0.4 ML (LOVENOX) SYR SC SCH (13:46)
--- NOTE | 2020-07-04 19:38 | Progress Note - Cardiology ---
Cardiology SOAP Progress Note Subjective: Some L-sided axillary discomfort this am, lasting about 20 min, none since No shortness of breath No palp or syncope No swelling Objective: I&O/Vital Signs 07/04/20 07/04/20 07/04/20 07/04/20 08:00 08:36 12:00 12:48 Temp 36.0 35.4 Pulse 62 72 58 Resp 18 18 B/P (MAP) 120/80 (93) 108/69 (82) Pulse Ox 93 96 95 O2 Delivery Room Air Room Air Room Air 07/04/20 15:28 Temp 35.5 Pulse 66 Resp 20 B/P (MAP) 101/61 (74) Pulse Ox 93 O2 Delivery Room Air 07/04/20 00:00 Intake Total 3360 ml Balance 3360 ml Constitutional: AAO x 3, well-developed, well-nourished Respiratory: No accessory muscle use, No respiratory distress; chest expansion is symmetric, chest is bilaterally symmetric, other (dyspneic with minimal activity and conversation; diminished lower lobes bilat) Cardiovascular: regular rate-rhythm; No JVD; S1 and S2, systolic murmur Gastrointestional: No tender; soft, round, audible bowel sounds Extremities: no lower extremity edema bilateral Neurologic/Psychiatric: grossly intact (moves all extremities) Skin: No rash on exposed areas, No ulcerations on exposed areas Results/Procedures: Labs Laboratory Tests 07/04/20 04:27: Sodium Level 138, Potassium Level 3.8, Chloride Level 103, Carbon Dioxide Level 24, Anion Gap 11, Blood Urea Nitrogen 19H, Creatinine 1.06, Estimat Glomerular Filtration Rate > 60, BUN/Creatinine Ratio 18, Glucose Level 105, Calcium Level 8.5, Magnesium Level 2.0 Microbiology 07/03/20 MRSA Screen - Final, Complete MRSA not isolated Laboratory Tests 07/03/20 05:35 07/04/20 04:27 A/P: Assessment: Acute systolic CHF Dilated cardiomyopathy; echocardiogram of 07-02-20: LVEF 25-30%. Mod diffuse hypokinesis. LA mild to mod dilatation. Mod MR. Mod to severe TR. PASP 55-60 mmHg. Pulmonary hypertension Minimally elevated troponin prob Type 2 [place] H/O COVID (+) May 2020 GERD Chronic joint/back pain Marijuana use - cessation advised Plan: Continue current regimen Monitor labs Card cath 07/05/20 I have discussed the rationale, procedure, risks, benefits, potential complications and alternatives of card cath and possible ad hoc cor intervention with him. He understands and wishes to proceed LUKASZ CONNELL MD FACP FAC CCDS Jul 04, 2020 19:38
[2020-07-05] VITALS (11 sets, daily range): BP systolic 108–143; BP diastolic 61–93
[2020-07-05] MEDS: CATHETER FLUSH 10 ML SYR IV SCH ×3 (04:15→20:25)
[2020-07-05 06:47] LABS: CHLORIDE 102 MMOL/L (98-107); POTASSIUM 4.4 MMOL/L (3.6-5.0); SODIUM 137 MMOL/L (135-145)
[2020-07-05 06:48] LABS: CALCIUM 9.1 MG/DL (8.5-10.1)
[2020-07-05 06:49] LABS: GLUCOSE 117 MG/DL (70-105)
[2020-07-05 06:50] LABS: CARBON DIOXIDE 27 MMOL/L (21-32)
[2020-07-05 06:52] LABS: CREATININE SERUM 1.18 MG/DL (0.60-1.30); GFR ESTIMATED > 60
[2020-07-05 06:53] LABS: BUN/CREATININE RATIO 14
[2020-07-05] MEDS ORDERED: LIDOCAINE 1% INJ 20 ML 20 ML VIAL ONE (07:52)
[2020-07-05] MEDS ORDERED: MIDAZOLAM 5 MG/5 ML (VERSED) VIAL ONE (07:53)
[2020-07-05] MEDS ORDERED: fentaNYL INJECTION 100 MCG/2 ML AMP ONE (07:53)
[2020-07-05] MEDS ORDERED: NS IV 1000 ML 1,000 ML ONE (07:53)
[2020-07-05] MEDS ORDERED: HEParin (CATH LAB) 2,000 ML IV ONE (07:53)
--- NOTE | 2020-07-05 08:15 | NUR ---
PATIENT OFF FLOOR FOR PROCEDURE AT THIS TIME.
[2020-07-05] MEDS: FUROSEMIDE 40 MG (LASIX) TAB PO SCH ×2 (08:47→13:04)
[2020-07-05] MEDS: ASPIRIN E.C. 81 MG (ECOTRIN) TAB PO SCH ×2 (08:47→13:04)
[2020-07-05] MEDS: ENALAPRIL 10 MG (VASOTEC) TAB PO SCH ×3 (08:47→20:25)
[2020-07-05] MEDS: CARVEDILOL 12.5 MG (COREG) TABLET PO SCH ×3 (08:47→20:25)
[2020-07-05] MEDS: KCL 10 MEQ TAB (MICRO K) PO SCH ×3 (08:47→18:04)
[2020-07-05] MEDS ORDERED: NS IV 1000 ML 1,000 ML IV SCH (10:00)
[2020-07-05] MEDS ORDERED: PATIENT MAY USE OWN MEDS, ALL PO SCH (10:00)
--- NOTE | 2020-07-05 10:02 | Progress Note - Cardiology ---
Cardiology SOAP Progress Note Subjective: No cp or palp or syncope Shortness of breath better Malaise persistent No n/v/d Objective: I&O/Vital Signs 07/04/20 07/05/20 07/05/20 07/05/20 23:02 01:00 04:15 07:54 Temp 36.2 35.6 Pulse 64 59 68 Resp 20 18 B/P (MAP) 106/67 (80) 143/80 (101) Pulse Ox 93 92 O2 Delivery Room Air Room Air Room Air 07/05/20 08:00 Temp 36.8 Pulse 66 Resp 20 B/P (MAP) 128/61 (83) Pulse Ox 98 O2 Delivery Room Air 07/05/20 00:00 Intake Total 2470 ml Balance 2470 ml Constitutional: AAO x 3, well-developed, well-nourished Respiratory: No accessory muscle use, No respiratory distress; chest expansion is symmetric, chest is bilaterally symmetric, other (dyspneic with minimal activity and conversation; diminished lower lobes bilat) Cardiovascular: regular rate-rhythm; No JVD; S1 and S2, systolic murmur Gastrointestional: No tender; soft, round, audible bowel sounds Extremities: no lower extremity edema bilateral Neurologic/Psychiatric: grossly intact (moves all extremities) Skin: No rash on exposed areas, No ulcerations on exposed areas Results/Procedures: Labs Laboratory Tests 07/05/20 06:20: Sodium Level 137, Potassium Level 4.4, Chloride Level 102, Carbon Dioxide Level 27, Anion Gap 8, Blood Urea Nitrogen 17, Creatinine 1.18, Estimat Glomerular Filtration Rate > 60, BUN/Creatinine Ratio 14, Glucose Level 117H, Calcium Level 9.1 Microbiology 07/03/20 MRSA Screen - Final, Complete MRSA not isolated A/P: Assessment: Acute systolic CHF Dilated cardiomyopathy - echocardiogram of 07-02-20: LVEF 25-30%. Mod diffuse hypokinesis. LA mild to mod dilatation. Mod MR. Mod to severe TR. PASP 55-60 mmHg - card cath of 07-05-21: mild CAD, LVEDP 12 mmHg, LVEF 25% Pulmonary hypertension probably due to L heart failure (see above) Minimally elevated troponin prob Type 2 [place] (due to CHF) H/O COVID (+) May 2020 GERD Chronic joint/back pain Marijuana use - cessation advised Plan: Continue current regimen Advised Life Vest Outpt f/u advised LUKASZ CONNELL MD FACP FAC CCDS Jul 05, 2020 10:02
--- NOTE | 2020-07-05 10:23 | CARDIAC CATHETERIZATION ---
DATE OF SERVICE: 07/05/2020 CARDIAC CATHETERIZATION REPORT INDICATION FOR PROCEDURE: The patient is a 60-year-old gentleman, who was admitted with new onset of congestive heart failure. Echocardiography indicated dilated cardiomyopathy. Cardiac catheterization was carried out after having obtained an informed consent. DESCRIPTION OF PROCEDURE: He was brought to the cardiac catheterization laboratory in a fasting state. Right groin was prepared and draped in the usual sterile fashion. Lidocaine 1% was used for local anesthesia. Modified Seldinger technique was used to advance a 5-Angolan sheath in the right femoral artery. Angiography of the right femoral artery was carried out through the sheath. We used a 5-Angolan JL4 catheter for left coronary angiography and 5-Angolan JR4 catheter was used for right coronary angiography. We used a 5-Angolan pigtail catheter for left heart catheterization and left ventricular angiography. The catheter was pulled back and removed. Mynx was used to achieve hemostasis following sheath removal. The patient tolerated the procedure well. HEMODYNAMICS: Left ventricular end-diastolic pressure following coronary angiography was 12 mmHg. There was no significant pressure gradient on pullback across the aortic valve. Ascending aortic pressure was 102/64 with a mean of 81 mmHg. CORONARY ANGIOGRAPHY: Left main coronary artery, left anterior descending artery, left circumflex artery exhibits minimal plaques. The right coronary artery is dominant and has mild plaque in its proximal and mid portions. LEFT VENTRICULAR ANGIOGRAPHY: Left ventricular angiography was carried out in the right anterior oblique projection. There is global hypokinesis of the left ventricle. Left ventricular ejection fraction is estimated to be 25%. CONCLUSIONS: 1. Angiographically mild coronary artery disease. 2. Impairment of global left ventricular systolic function with an ejection fraction of approximately 25%. 3. Left ventricular end-diastolic pressure at the high end of normal. DISCUSSION AND RECOMMENDATIONS: Therapy for dilated cardiomyopathy is being continued. We have advised LifeVest for up to three months since the initial diagnosis. If cardiomyopathy persists after that time, he may need a permanent defibrillator. Job ID: [id number] DocumentID: [id number] Dictated Date: 07/05/2020 09:54:48 [employer] Date: 07/05/2020 10:23:03 Dictated By: LUKASZ CONNELL MD, MA, FACP, FACC,
--- NOTE | 2020-07-05 12:24 | Progress Note - Hospitalist ---
Subjective HPI/CC On Admission Date Seen by Provider: Jul 05, 2020 Time Seen by Provider: 12:22 Peewee Gutierrez is a 60-year-old male with no known past medical history who presented with chest tightness. He denies chest pain. He reports feeling short of breath. He reports orthopnea and PND. He has not noticed any leg swelling. He denies fevers and chills. He has had a cough. He was sick with COVID about a month ago. He denies abdominal pain, nausea, vomiting, and diarrhea. He does not use tobacco. He drinks alcohol occasionally. He smokes marijuana occasionally. Subjective/Events-last exam Pt just returned from cath. No intervention. States he's feeling well. Only complaint is some discomfort with laying flat on his back. Objective Exam Vital Signs Vital Signs Date Time Temp Pulse Resp B/P (MAP) Pulse Ox O2 Delivery O2 Flow Rate FiO2 07/05/20 11:30 53 8 127/93 (104) 98 Room Air 07/05/20 08:00 36.8 07/03/20 11:08 21 Capillary Refill : Less Than 3 SecondsLess Than 3 Seconds General Appearance: No Apparent Distress, WD/WN Respiratory: Lungs Clear, No Respiratory Distress Cardiovascular: Regular Rate, Rhythm, No Murmur Neurologic/Psychiatric: Alert, Oriented x3 Results/Procedures Lab Laboratory Tests 07/05/20 06:20 Patient resulted labs reviewed. 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
[2020-07-05] MEDS ORDERED: POTA10TA6 PO (12:25)
[2020-07-05] MEDS ORDERED: FURO40TA4 PO (12:25)
[2020-07-05] MEDS ORDERED: ENAL10TA16 PO (12:25)
[2020-07-05] MEDS ORDERED: ASPI-1238 PO (12:25)
[2020-07-05] MEDS ORDERED: CARV12.53 PO (12:25)
--- NOTE | 2020-07-05 12:49 | NUR ---
PATIENT BACK TO ROOM 418 AT THIS TIME. BP 147/95, HR 67
--- NOTE | 2020-07-05 12:49 | NUR ---
1240 PT TO ROOM 418 VIA W/C ACCOMPANIED BY THIS RN REPORT GIVEN TO Mariza MIGUEL RN
[2020-07-05] MEDS: ENOXAPARIN 40 MG/0.4 ML (LOVENOX) SYR SC SCH (13:04)
--- NOTE | 2020-07-05 15:22 | NUR ---
[facility] PAPERS FAXED TO [facility] E[facility] TODAY FOR COMPLETION OF ZOLL FORM. THIS RN FOLLOWED UP TO CONFIRM RECEIPT. NIB ASSEMBLER STATES THEY ARE IN CLINIC AND BUSY AT THIS TIME, BUT PAPER HAS BEEN RECEIVED.
--- NOTE | 2020-07-05 17:15 | Physician Query Clarification ---
"Physician Query-General Query to Physician: The medical record reflects the following clinical scenario: History/Risk factors: Recent COVID, Alcohol use Clinical Findings: Chest tightness, SOB, Troponin 0.044, EKG no ST elevation Treatment: Aspirin, Heparin, Lovenox, Cardiology consult, Heart Cath Question: Do you agree with the impression of Type 2 KS (due to CHF) per De. John Mratínez? If you agree, please document in Progress Notes or Discharge Summary. 1. Yes; will document Type 2 KS due to CHF in the Progress Notes 2. No; will continue to document Elevated Troponin in the Progress Notes 3. Other; will document explanation of clinical findings 4. Clinically undetermined; no explanation for clinical findings Please remember a lack of response to the above will prompt a phone page by CDI/coding staff. In responding to this query, please exercise your independent professional judgment. The purpose of this communication is to more accurately reflect the complexity of your patients condition. The fact that a question is asked does not imply that any particular answer is desired or expected. Thank you for timely response to this clarification. Sheba Andrade, MSN, RN RN Specialist-Clinical Doc Improvement CD -Health Info Mgmt Operations [address] [facility] t: [phone] | f: [phone] If you are unable to reach me at my extension, I may be working from home. Please contact me at [phone] PHYSICIAN RESPONSE: Based on the clinical findings in the record, please respond to the query above on this document as an addendum. Physician Response: Physician Response 1 If you have questions please contact: Crew Manager: Ext: Thank you for your time and cooperation. Clinical Bobtail Driver/Crew Manager This is a permanent part of the medical record SHEBA ANDRADE Jul 05, 2020 17:15 ANA LAURA GARZA MD Jul 06, 2020 13:55"
[2020-07-05] MEDS ORDERED: ACETAMINOPHEN 500 MG TAB (TYLENOL) ONE (18:24)
--- NOTE | 2020-07-05 18:25 | NUR ---
PATIENT C/O PAIN 4/10 IN RIGHT GROIN. DSG DRY, INTACT, NO EDEMA, SKIN WNL. DR GARZA NOTIFIED, TYLENOL? NEW ORDER RECEIVED 500MG Q4H PRN.
[2020-07-05] MEDS ORDERED: ACETAMINOPHEN 500 MG TAB (TYLENOL) PO PRN (18:30)
[2020-07-06] VITALS (7 sets, daily range): BP systolic 95–136; BP diastolic 51–85
[2020-07-06] MEDS: CATHETER FLUSH 10 ML SYR IV SCH ×2 (04:00→17:28)
[2020-07-06 06:06] LABS: CHLORIDE 105 MMOL/L (98-107); POTASSIUM 4.4 MMOL/L (3.6-5.0); SODIUM 136 MMOL/L (135-145)
[2020-07-06 06:07] LABS: CALCIUM 8.7 MG/DL (8.5-10.1)
[2020-07-06 06:08] LABS: GLUCOSE 115 MG/DL (70-105)
[2020-07-06 06:09] LABS: CARBON DIOXIDE 21 MMOL/L (21-32)
[2020-07-06 06:12] LABS: CREATININE SERUM 0.97 MG/DL (0.60-1.30); GFR ESTIMATED > 60
[2020-07-06 06:13] LABS: BUN/CREATININE RATIO 16
[2020-07-06] MEDS: FUROSEMIDE 40 MG (LASIX) TAB PO SCH (08:16)
[2020-07-06] MEDS: ASPIRIN E.C. 81 MG (ECOTRIN) TAB PO SCH (08:16)
[2020-07-06] MEDS: CARVEDILOL 12.5 MG (COREG) TABLET PO SCH (08:16)
[2020-07-06] MEDS: ENALAPRIL 10 MG (VASOTEC) TAB PO SCH (08:16)
[2020-07-06] MEDS: KCL 10 MEQ TAB (MICRO K) PO SCH ×2 (08:16→18:20)
--- NOTE | 2020-07-06 08:34 | Cardiology Progress Note ---
Subjective Date Seen by Provider: Jul 06, 2020 Time Seen by Provider: 08:35 Subjective/Events-last exam Patient is sitting up in chair. Denies any chest pain. Objective-Cardiology Exam Last Set of Vital Signs Vital Signs 07/03/20 07/05/20 07/06/20 11:08 11:00 04:00 Temp 36.5 Pulse 77 Resp 20 B/P (MAP) 131/84 (100) Pulse Ox 94 O2 Delivery Room Air O2 Flow Rate 3.00 FiO2 21 Capillary Refill : Less Than 3 SecondsLess Than 3 Seconds I&O Intake and Output 07/06/20 00:00 Intake Total 1240 ml Balance 1240 ml Intake Oral 1240 ml # Voids 7 # Bowel Movements 4 General: Alert, Oriented X3, Cooperative HEENT: Atraumatic, PERRLA Neck: Supple, No JVD, No Thyromegaly Lungs: Clear to Auscultation, Normal Air Movement Heart: Regular Rate, Normal S1, Normal S2, No Murmurs Abdomen: Normal Bowel Sounds, Soft, No Tenderness, No Hepatosplenomegaly, No Masses Extremities: No Clubbing, No Cyanosis, No Edema, Normal Pulses, No Tenderness/Swelling Skin: No Rashes, No Breakdown, No Significant Lesion Neuro: Normal Gait, Normal Speech, Strength at 5/5 X4 Ext, Normal Tone, Sensation Intact Psych/Mental Status: Mental Status NL, Mood NL Results Lab Laboratory Tests 07/06/20 05:35 A/P-Cardiology Admission Diagnosis CHF h/o COVID HTP GERD Assessment/Plan Acute systolic CHF Dilated cardiomyopathy - echocardiogram of 07-02-20: LVEF 25-30%. Mod diffuse hypokinesis. LA mild to mod dilatation. Mod MR. Mod to severe TR. PASP 55-60 mmHg - card cath of 07-05-21: mild CAD, LVEDP 12 mmHg, LVEF 25%. Lifevest ordered. Pulmonary hypertension probably due to L heart failure (see above) Minimally elevated troponin prob Type 2 IN (due to CHF) H/O COVID (+) May 2020 GERD Chronic joint/back pain Marijuana use - cessation advised OK for discharge once patient has Lifevest. F/u in 2-4 weeks with MARLEN Sarabia Jul 06, 2020 08:34
--- NOTE | 2020-07-06 10:29 | Discharge Summary ---
Diagnosis/Chief Complaint Date of Admission Jul 02, 2020 at 15:21 Date of Discharge Discharge Date: Jul 05, 2020 Admission Diagnosis Acute HFrEF Primary Care No,Local Physician Discharge Diagnosis (1) Acute HFrEF (heart failure with reduced ejection fraction) Status: Acute (2) Elevated troponin Status: Acute (3) Pulmonary hypertension Status: Acute (4) HTN (hypertension) Status: Acute (5) Obesity Status: Chronic (6) Marijuana use Status: Chronic (7) Alcohol use Status: Chronic (8) Former smoker Status: Chronic Discharge Summary Discharge Physical Exam Allergies: Coded Allergies: No Known Drug Allergies (Unverified , 07/02/20) Vitals & I&Os Vital Signs Date Time Temp Pulse Resp B/P (MAP) Pulse Ox O2 Delivery O2 Flow Rate FiO2 07/06/20 12:28 58 07/06/20 12:00 35.5 20 119/75 (90) 96 Room Air 07/05/20 11:30 07/03/20 11:08 21 General Appearance: No Apparent Distress, WD/WN Respiratory: Lungs Clear, No Accessory Muscle Use, No Respiratory Distress Cardiovascular: Regular Rate, Rhythm, No Murmur Neurologic/Psychiatric: Alert, Oriented x3 Hospital Course Pt was admitted due to chest pain and elevated troponin. He was found to have new onset systolic heart failure and cardiology was consulted. Echo revealed EF of 25-30%. He underwent cardiac cath which revealed only mild coronary artery disease and thus no intervention was done. He was started on heart failure meds for dilated cardiomyopathy. LifeVest was ordered and arranged prior to discharge. He was discharged home in stable condition. He reports he will establish care with Dr Zuniga and he is to follow up with Dr Martínez. Labs (last 24 hrs) Laboratory Tests 07/06/20 05:35: Sodium Level 136, Potassium Level 4.4, Chloride Level 105, Carbon Dioxide Level 21, Anion Gap 10, Blood Urea Nitrogen 16, Creatinine 0.97, Estimat Glomerular Filtration Rate > 60, BUN/Creatinine Ratio 16, Glucose Level 115H, Calcium Level 8.7 Microbiology 07/03/20 MRSA Screen - Final, Complete MRSA not isolated Patient resulted labs reviewed. Pending Labs Laboratory Tests 07/06/20 05:35: Sodium Level 136, Potassium Level 4.4, Chloride Level 105, Carbon Dioxide Level 21, Anion Gap 10, Blood Urea Nitrogen 16, Creatinine 0.97, Estimat Glomerular Filtration Rate > 60, BUN/Creatinine Ratio 16, Glucose Level 115, Calcium Level 8.7 Imaging: Reviewed Imaging Report Discussion & Recommendations Discharge Planning: >30 minutes discharge planning Discharge Home Medications: Active Scripts Active Klor-Con 10 (Potassium Chloride) 10 Meq Tablet.er 10 Meq PO BID WITH MEALS Furosemide 40 Mg Tablet 40 Mg PO DAILY Carvedilol 12.5 Mg Tablet 12.5 Mg PO BID Enalapril Maleate 10 Mg Tablet 10 Mg PO BID Aspirin EC (Aspirin) 81 Mg Tablet.dr 81 Mg PO DAILY Reported Aleve (Naproxen Sodium) 220 Mg Tablet 220 Mg PO TID PRN Stool Softener (Docusate Sodium) 100 Mg Capsule 100 Mg PO DAILY Joint Health Tablet (Cartilage/Collagen/Bor/Hyalur) 1 Each Tablet 1 Each PO DAILY Omeprazole 20 Mg Tab.rap.dr 20 Mg PO DAILY Instructions to patient/family Please see electronic discharge instructions given to patient. ANA LAURA GARZA MD Jul 06, 2020 10:29
--- NOTE | 2020-07-06 10:32 | Discharge Inst-Simple/Standard ---
Discharge Inst-Standard Patient Instructions/Follow Up Plan of Care/Instructions/FU: Please continue to take your medications as written. Please follow up with your primary care doctor to follow up this hospital stay. Please follow up with Dr Martínez as well. Activity as Tolerated: Yes Discharge Diet: Cardiac Diet Return to The Hospital For: Chest pain, shortness of breath, weight gain of more than 3lb in 24 hours, fever, fatigue, palpitations, if your life vest discharges, if you feel you are getting worse. ANA LAURA GARZA MD Jul 06, 2020 10:32
--- NOTE | 2020-07-06 12:32 | Cardiology Progress Note ---
Subjective Date Seen by Provider: Jul 06, 2020 Time Seen by Provider: 12:31 Subjective/Events-last exam patient was seen at bedside, laying down comfortably, denied any active pain. All his questions were answered Review of Systems General: No Chills, No Night Sweats, No Fatigue, No Malaise, No Appetite, No Other HEENT: No Head Aches, No Visual Changes, No Eye Pain, No Ear Pain, No Dysphasia, No Sinus Congestion, No Post Nasal Drip, No Sore Throat, No Other Pulmonary: No Dyspnea, No Cough, No Pleuritic Chest Pain, No Other Cardiovascular: No: Chest Pain, Palpitations, Orthopnea, Paroxysmal Noc. Dyspnea, Edema, Lt Headedness, Other Objective-Cardiology Exam Last Set of Vital Signs Vital Signs 07/03/20 07/05/20 11:08 11:00 O2 Flow Rate 3.00 FiO2 21 Capillary Refill : Less Than 3 SecondsLess Than 3 Seconds I&O Intake and Output 07/06/20 00:00 Intake Total 1240 ml Balance 1240 ml Intake Oral 1240 ml # Voids 7 # Bowel Movements 4 General: Alert, Oriented X3, Cooperative HEENT: Atraumatic, PERRLA Neck: Supple, No JVD, No Thyromegaly Lungs: Clear to Auscultation, Normal Air Movement Heart: Regular Rate, Normal S1, Normal S2, No Murmurs Abdomen: Normal Bowel Sounds, Soft, No Tenderness, No Hepatosplenomegaly, No Masses Extremities: No Clubbing, No Cyanosis, No Edema, Normal Pulses, No Tenderness/S welling Skin: No Rashes, No Breakdown, No Significant Lesion Neuro: Normal Gait, Normal Speech, Strength at 5/5 X4 Ext, Normal Tone, Sensation Intact Psych/Mental Status: Mental Status NL, Mood NL Results Lab Laboratory Tests 07/06/20 05:35 A/P-Cardiology Admission Diagnosis CHF h/o COVID HTP GERD Assessment/Plan Acute systolic CHF, resolved. Continue to monitor her heart function Dilated cardiomyopathy, nonischemic cardiomyopathy - echocardiogram of 07-02-20: LVEF 25-30%. Mod diffuse hypokinesis. LA mild to mod dilatation. Mod MR. Mod to severe TR. PASP 55-60 mmHg - card cath of 07-05-21: mild CAD, LVEDP 12 mmHg, LVEF 25%. Lifevest ordered. Pulmonary hypertension probably due to L heart failure (see above) Minimally elevated troponin prob Type 2 AR (due to CHF) H/O COVID (+) May 2020 GERD Chronic joint/back pain Marijuana use - cessation advised OK for discharge once patient has Lifevest. F/u in 2-4 weeks with RUBÉN Burk MD Jul 06, 2020 12:32
[2020-07-06] MEDS: ENOXAPARIN 40 MG/0.4 ML (LOVENOX) SYR SC SCH (12:40)
--- NOTE | 2020-07-06 15:08 | NUR ---
"RD ASSESSMENT PMHx: COVID-19; GERD; PT INTERACTION: Pt was awake and pleasant during nutrition consult for MST score. Pt states current appetite is good. Note avg PO intake 100% x3d, per chart review. Pt states following a regular diet at home, and has no issues with chewing/swallowing food. Pt states some recent issues with diarrhea. Note last BM was 06/25, and pt not currently on bowel regimen per chart review. Pt states recent 15# wt loss, attributing it to recent diagnosis of COVID. Note unable to determine recent wt hx, per chart review. Given wt hx, and PO intake, pt does not meet criteria for malnutrition per ASPEN guidelines. Est. kcal needs: 8977-3707 kcal | 15-20 kcal/kg Est. Pro needs: 78-98 g Pro | 0.8-1.0 g Pro/kg PES STATEMENT: Given current PO intake, no nutrition diagnosis at this time (NO-1.1). INTERVENTION: Continue with current diet order of CHO 60g/m 1snack diet. Will continue to follow and reassess as pt needs, intake, and status change. Nayely WEBSTER, MS RD LD [phone] cell"
== END 2020-07-06 18:29 | disposition home or self-care (01) | DRG 280 ==
LOC: ER 10:50 → 4TH 14:07 → OBSVTOIN 15:21
PROVIDERS: ADMIT Internal Medicine; ATTEND Internal Medicine
PROC: 4A023N7 Measurement of Cardiac Sampling and Pressure, Left Heart, Percutaneous Approach (ICD-10-PCS; principal; 2020-07-05)
PROC: B2111ZZ Fluoroscopy of Multiple Coronary Arteries using Low Osmolar Contrast (ICD-10-PCS; 2020-07-05)
PROC: B2151ZZ Fluoroscopy of Left Heart using Low Osmolar Contrast (ICD-10-PCS; 2020-07-05)
DX: I11.0 Hypertensive heart disease with heart failure (principal); I50.21 Acute systolic (congestive) heart failure; I21.A1 Myocardial infarction type 2; I42.0 Dilated cardiomyopathy; I08.1 Rheumatic disorders of both mitral and tricuspid valves; I27.20 Pulmonary hypertension, unspecified; K21.9 Gastro-esophageal reflux disease without esophagitis; I49.3 Ventricular premature depolarization; Z86.16 Personal history of COVID-19; M25.50 Pain in unspecified joint; M54.9 Dorsalgia, unspecified; F12.90 Cannabis use, unspecified, uncomplicated; K59.00 Constipation, unspecified; Z87.891 Personal history of nicotine dependence; E66.9 Obesity, unspecified; Z68.30 Body mass index [BMI] 30.0-30.9, adult; Z72.89 Other problems related to lifestyle; Z79.1 Long term (current) use of non-steroidal anti-inflammatories (NSAID); Z79.82 Long term (current) use of aspirin
CPT/HCPCS: 36415; 71045; 71275; 80048; 80053; 80061; 83735; 83874; 83880; 84145; 84484; 85025; 85379; 85610; 85730; 86141; 87081; 93005; 93306; 93458; 94760; G0378

== ENCOUNTER 2020-12-23 08:28 | Outpatient (CLI) | payer BC ==
[~2020-12-23] VITALS: Ht 180.3 cm; Wt 99.9 kg
[~2020-12-23 08:28] MED LIST: ASPI-1238 PO; CART1TAB5 PO; CARV12.53 PO; DOCU-26 PO; ENAL10TA16 PO; FURO40TA4 PO; NAPR220T66 PO; OMEP-401 PO; POTA10TA6 PO
[2020-12-23] MEDS ORDERED: SACU1TAB2 PO (13:27)
== END 2020-12-23 13:56 | disposition home or self-care (01) ==
LOC: PREOP 08:28
PROVIDERS: ATTEND Internal Medicine
DX: Z01.818 Encounter for other preprocedural examination (principal)

== ENCOUNTER → 2020-12-31 | Day surgery (SDC) | payer BC ==
--- NOTE | 2020-12-23 06:04 | HISTORY AND PHYSICAL ---
DATE OF SERVICE: DATE OF ADMISSION: ____. HISTORY OF PRESENT ILLNESS: The patient is a 60-year-old white male seen in the office for followup of dilated cardiomyopathy, likely the result of COVID infection. He has since been vaccinated with J and J. He presented with heart failure not long after his COVID diagnosis and was noted to have an ejection fraction 25% on echocardiography in June of this year. Cardiac catheterization revealed no evidence for coronary artery disease. He was placed on Coreg and Entresto was added in July. He reports that he has been feeling well and repeat echocardiography on 10/29/2020 revealed his ejection fraction was up to 40%. He has had resolution of heart failure symptoms and has been walking on a regular basis and no long haul COVID symptoms reported. He is not aware of any family history for colon cancer and has not previously accomplished colonoscopy. PHYSICAL EXAMINATION: GENERAL: Reveals a white male, appeared to be in no acute distress. He also denies orthopnea, PND, pedal edema or dyspnea on exertion. Weight was up 2.8 pounds to 226.2, blood pressure 130/90. HEENT: Unremarkable. At the end of the interview, blood pressure was down to 120/76. CHEST: Clear. CARDIOVASCULAR: Regular rate and rhythm without murmur, S3 or S4. ABDOMEN: Soft, supple without mass, organomegaly or tenderness. RECTAL: Deferred at the time of colonoscopy. EXTREMITIES: Reveal no cyanosis, clubbing or edema. ASSESSMENT AND PLAN: Chronic compensated dilated cardiomyopathy, improving on current therapy, likely related to previous COVID infection. The patient now fully vaccinated with J and J vaccine. No heart failure symptoms reported. Continue current medication. The patient will hold any [id number] aspirin or nonsteroidal medication and he is being set up for colonoscopy on 12/31/2020. Prep instructions with the Suprep kit were given and questions were answered. He was scheduled for routine followup in 4 months at which time we will plan flu shot. Job ID: [id number] DocumentID: [id number] Dictated Date: 12/08/2020 18:33:00 Equal Opportunity Specialist Date: 12/08/2020 18:45:39 Dictated By: MULUGETA ANGEL MD
[~2020-12-31] VITALS: Ht 180 cm; Wt 99.9 kg
[~2020-12-31] MED LIST changes: +LACTATED RINGERS 1,000 ML IV STA; +LIDOCAINE JELLY 2% 6 ML SYRINGE MM PRN; +PROPOFOL INJECTION 50 ML IV ONE; +SACU1TAB2 PO
[2020-12-31 07:24] VITALS: BP 176/103
--- NOTE | 2020-12-31 08:00 | Pre-Op Note & Conscious Sedat ---
Pre-Operative Progress Note H&P Reviewed The H&P was reviewed, patient examined and no changes noted. Date H&P Reviewed: Dec 31, 2020 Time H&P Reviewed: 07:45 Conscious Sedation Pre-Proced ASA Score 2 For ASA 3 and 4: Consider anesthesia and medical clearance. Also, for patients with a history of failed moderate sedation consider anesthesia. Airway Lungs Heart ASA score ASA 1: a normal healthy patient ASA 2: a patient with a mild systemic disease (mid diabetes, controlled hypertension, obesity ASA 3: a patient with a severe systemic disease that limits activity (angina, COPD, prior Myocardial infarction) ASA 4: a patient with an incapacitating disease that is a constant threat to life (CHF, renal failure) ASA 5: a moribund patient not expected to survive 24 hrs. (ruptured aneurysm) ASA 6: a declared brain- patient whose organs are being harvested. For emergent operations, add the letter E after the classification Mallampati Classification Grade 2 Sedation Plan Analgesia, Amnesia, Plan communicated to team members, Discussed options with patient/fam, Discussed risks with patient/fam The patient is an appropriate candidate to undergo the planned procedure, sedation, and anesthesia. The patient immediately re-assessed prior to indication. MULUGETA ANGEL MD Dec 31, 2020 08:00
[2020-12-31 08:40] VITALS: BP 116/69
[2020-12-31 08:45] VITALS: BP_SYST 129; BP_SYST 141; BP_DIAS 70; BP_DIAS 78
[2020-12-31 09:15] VITALS: BP 121/83
--- NOTE | 2020-12-31 14:56 | OPERATIVE REPORT ---
DATE OF SERVICE: COLONOSCOPY SUMMARY INDICATION FOR THE PROCEDURE: Screening. DESCRIPTION OF PROCEDURE: The patient was placed in the left lateral decubitus position. Prior to undergoing colonoscopy, digital rectal evaluation was performed. Anal sphincter tone was normal. Prostate is mildly enlarged, compatible with mild BPH without evidence for nodularity on digital inspection. No other abnormalities were noted on digital inspection of anal canal or distal rectal vault. The colonoscope was then inserted into the rectum and under direct visualization advanced to the cecum. The cecum was identified by identification of ileocecal valve and cecal strap. Photographic documentation was obtained. Careful inspection was made as the colonoscope was withdrawn. There were some suboptimal areas of visualization in the sigmoid colon due to some retained stool and moderate diverticular disease, elsewhere visualization was reasonable. The rectum other than several small grade I internal hemorrhoid complexes was unremarkable with no evidence for external hemorrhoids. Moderate diverticular disease without evidence for diverticulitis was noted throughout the sigmoid colon and the descending colon. Several medium size ascending colonic diverticulum were noted as well. No evidence for neoplasia was identified on today's procedure. ASSESSMENT: Moderate diverticular disease predominantly in the sigmoid and descending colon with several diverticulum also noted in the ascending colon without evidence for diverticulitis. No evidence for neoplasia was noted. Several small grade I internal hemorrhoid complexes were noted with digital evaluation of the prostate compatible with mild BPH and no nodularity. Due to prep issues, we will likely be recommending repeat screening colonoscopy in 5 years. Job ID: [id number] DocumentID: [id number] Dictated Date: 12/31/2020 08:42:22 Mine Supervisor Date: 12/31/2020 14:55:45 Dictated By: MULUGETA ANGEL MD
== END ==
LOC: ENDO 07:06
PROVIDERS: ATTEND Internal Medicine
DX: Z12.11 Encounter for screening for malignant neoplasm of colon (principal); K57.30 Diverticulosis of large intestine without perforation or abscess without bleeding; K64.0 First degree hemorrhoids; Z86.16 Personal history of COVID-19

== ENCOUNTER 2022-03-29 05:31 | Outpatient (CLI) | payer BC ==
[~2022-03-29] VITALS: Ht 180.3 cm; Wt 98.7 kg
[~2022-03-29 05:31] MED LIST changes: -LACTATED RINGERS 1,000 ML IV STA; -LIDOCAINE JELLY 2% 6 ML SYRINGE MM PRN; +POTA-160 PO; -POTA10TA6 PO; -PROPOFOL INJECTION 50 ML IV ONE
[2022-03-30] MEDS ORDERED: SACU1TAB7 PO (12:37)
[2022-03-30] MEDS ORDERED: CARV25TA PO (12:37)
[2022-03-30] MEDS ORDERED: OMEP20TA33 PO (14:59)
== END 2022-03-30 15:07 | disposition home or self-care (01) ==
LOC: PREOP 05:31
PROVIDERS: ATTEND Surgery
DX: Z01.818 Encounter for other preprocedural examination (principal)

== ENCOUNTER 2022-04-05 07:39 | Day surgery (SDC) | payer BC ==
[2022-04-05] VITALS (11 sets, daily range): BP systolic 109–155; BP diastolic 71–92
[~2022-04-05] VITALS: Ht 180 cm; Wt 98.7 kg
[~2022-04-05 07:39] MED LIST changes: +CARV25TA PO; +OMEP20TA33 PO; +SACU1TAB7 PO
[2022-04-05] MEDS ORDERED: LIDOCAINE/EPI 1%-1:100,000 (XYLOCAINE) 10 ML ONE (07:53)
[2022-04-05] MEDS ORDERED: ceFAZolin INJECTION 2,000 MG in NS (IVPB) 50 ML IV ONE (08:00)
[2022-04-05] MEDS ORDERED: LIDOCAINE PF 2% 5 ML (XYLOCAINE) VIAL ONE (08:03)
[2022-04-05] MEDS ORDERED: NEOSTIGMINE (BLOXIVERZ ) 1 MG/1ML 10 ML VIAL ONE (08:03)
[2022-04-05] MEDS ORDERED: MIDAZOLAM 2 MG/2 ML (VERSED) VIAL ONE (08:03)
[2022-04-05] MEDS ORDERED: ONDANSETRON 4 MG/2 ML (SDV) Z0FRAN ONE (08:03)
[2022-04-05] MEDS ORDERED: proPOfol 200 MG/20 ML (DIPRIVAN) VIAL IV ONE (08:03)
[2022-04-05] MEDS ORDERED: ROCURONIUM 10 MG/ML 5 ML SYRINGE IV ONE ×2 (08:03→10:14)
[2022-04-05] MEDS ORDERED: GLYCOPYRROLATE 0.2 MG/ML (ROBINUL) 2 ML VIAL ONE (08:03)
[2022-04-05] MEDS ORDERED: fentaNYL INJ 100 MCG/2 ML AMP ONE (08:03)
--- NOTE | 2022-04-05 08:16 | Progress Note-Pre Operative ---
Pre-Operative Progress Note Date of Available H&P: Mar 21, 2022 Date H&P Reviewed: Apr 05, 2022 Time H&P Reviewed: 08:12 History & Physical: H&P Reviewed, Patient Examed, No changes noted Pre-Operative Diagnosis: B/L inguinal hernia SEAN YANCEY DO Apr 05, 2022 08:15
[2022-04-05] MEDS: LACTATED RINGERS 1,000 ML IV PRN ×2 (08:25→09:31)
[2022-04-05] MEDS ORDERED: HYDROmorphone 2 MG/ML VIAL (DILAUDID) IV ONE (09:15)
[2022-04-05] MEDS ORDERED: ONDANSETRON 4 MG/2 ML (SDV) Z0FRAN IVP PRN (09:15)
[2022-04-05] MEDS ORDERED: morphine INJ 10 MG/ML 1ML (SYR OR VIAL) IVP ONE (09:15)
[2022-04-05] MEDS ORDERED: PHENYLEPHRINE 100 MCG/ML 10 ML (ANESTHESIA) SYR ONE (10:04)
--- NOTE | 2022-04-05 11:35 | Progress Note-Post Operative ---
Post-Operative Progess Note Surgeon (s)/Ribbon Cutter (s) Surgeon SEAN YANCEY DO Ribbon Cutter: Elisabeth Pre-Operative Diagnosis B/L inguinal hernia Post-Operative Diagnosis Incarcerated right inguinal hernia Right femoral hernia cord lipoma Procedure & Operative Findings Date of Procedure 04/05/22 Procedure Performed/Findings Laparoscopic right inguinal herniarraphy with mesh placement - robotic Laparoscopic right femoral herniarraphy with mesh Excision of cord lipoma After informed consent was obtained, the patient was brought to the operating room and placed on the operating table in a supine position. He was sterilely prepped and draped in a normal fashion. Local lidocaine was used to infiltrate the skin above the umbilicus. I made an incision with #11 blade, carried down to the skin into subcutaneous tissue and then deepened down the subcutaneous tissue with Bovie electrocautery down to the fascia. Fascia was incised with Bovie electrocautery and bluntly entered the abdomen, swept a finger around, placed 0 Vicryl [id number] suture and placed limited trocar port under direct visualization. Created pneumoperitoneum, able to visualize the right indirect inguinal hernia had some intestine in it and on the left it was covered with intestine which looked like was also incarcerated on the left. Took a picture of this and then placed two 8 mm ports about 10 cm on either side of the midline port using a local lidocaine, #11 blade for stab incision and then advanced the robotic port under direct visualization. Once this was in, I then placed the patient in Trendelenburg, docked the robot and then placed the working instruments, the fenestrated bipolar in the left arm and the scissors in the right arm. Looked on the left side and saw colon blocking visualization of inguinal canal. I started taking this down with sharp dissection (with scissors) and once it was completely down, I could see that in fact there was no inguinal hernia defect on the left. I could see an indirect hernia defect on the right side. Next, I came across the marianne- toneum approximately 8 cm away from the hernia defect, going across laterally starting lateral about 17cm and cutting toward the median umbilical ligament. I then carefully dissected the visceral peritoneum away and down and then in the midline, went through the parietal side and dissected down to the pubic tubercle, dissecting this down carefully pushing the peritoneum away, I was able to then visualize the pubic tubercle and Bert's ligament. I went 2 cm posterior and at this point, we then had a critical view of the dissection, able to dissect 2 cm across the midline to the right side, 2 cm posterior to the Bert's ligament, able to then parietalize the vas deferens and spermatic vessels right at the groove between Bert's and iliac vein and able to dissect, make sure there was no peritoneum between those two, able to see the indirect hernia space and took a picture of this. I then looked at the femoral space and found a femoral defect (femoral hernia); took a picture. Then I carefully teased out the hernia sac and could visualize the indirect hernia space. Next, I looked on the cord and cord structures. There was a moderate cord lipoma that I was able to reduce and cut off. This was then removed throught the port to get it out of the peritoneal space. I could clearly see the inguinal canal and the indirect space. I carried the posterior lateral dissection all the way out and then placed a 12 x 17 Midwieght Bard 3DMax mesh. It laid in nicely, covered both hernia defects and the rest of the area. It was above the peritoneum, sutured it at the pubic tubercle with a 3-0 Vicryl suture and tied this off. I then did another 3-0 Vicrly suture out laterally and this appeared to lay in very nicely. I then brought down the pneumoperitoneum to about 8 mmHg and then started closing the peritoneum. Started laterally and used a 2-0 V-lock barbed suture to start a running stitch to close the peritoneum. This was closed nicely, took a picture of the closure at this point, then removed both needles had switched to a suture truck driver heavy from the scissors. The patient was then placed back supine, removed all ports under direct visualization, allowed pneumoperitoneum to escape and then closed the supraumbilical incision, closing the fascia with 0 Vicryl suture previously placed. Copiously irrigated all incisions and then closed the two small 8 mm incisions with two interrupted 4-0 undyed Monocryl subcuticular stitches and closed the supraumbilical incision with three interrupted undyed Monocryl subcuticular stitch. Area was cleaned and dried. Dermabond was placed. The patient tolerated the procedure. The sponge, instrument and needle counts were correct at the end of the case. Dr. Barber assisted during this surgery by making incisions, closing incisions, helping to identify anatomy and passing/retrieving suture and needles. Anesthesia Type GET Estimated Blood Loss Estimated blood loss (mL): scant Specimens/Packing Specimens Removed cord lipoma SEAN YANCEY DO Apr 05, 2022 11:35
[2022-04-05] MEDS ORDERED: ACHD5005 PO (11:36)
[2022-04-05] MEDS ORDERED: SEVOFLURANE (ULTANE) 15 ML INHAL SOLN ONE (11:37)
--- NOTE | 2022-04-05 11:38 | Discharge Inst-Surgical ---
Discharge Inst-Surgical Depart Medication/Instructions New, Converted or Re-Newed RX: Transmitted to Pharmacy Patient Instructions Follow up Appt: Make appointment for 1 week. [phone] Instructions: No lifting greater than 20 pounds. No strenuous activity. May shower in 24 hours, no tub bath or soaking. Use incentive spirometer at home as directed. No Smoking Skin/Wound Care: May remove bandages in am. You need to leave the Dermabond on incision it will fall off on it's own. Symptoms to Report: Appetite Changes, Extremity Discoloration, Numbness/Tingling, Swelling Increased, Bleeding Excessive, Eyesight Changes, Pain Increased, Urine Color Change, Constipation(Persistent), Fever over 101 degree F, Pain/Pressure in chest, Urinating Difficulty, Cough Up/Vomit Blood, Heart Beat Irreg/Pounding, Pain/Pressure in jaw, Cramps in feet or legs, Lightheadedness, Pain/Pressure in shoulder, Diarrhea(Persistent), Memory Changes Suddenly, Questions/Concerns, Weight gain consecutive days, Dizziness/Fainting, Nausea/Vomiting, Shortness of Breath, Weight gain over 2 pounds If questions or concerns contact your physician Or seek help at emergency department. Activity Activity as Tolerated: Yes Activity Instructions: Avoid Stress to Incision Driving Instructions: No Driving/Refer to Dr. Padilla Discharge Diet: No Restrictions Diet After 24 Hours: Clear Liquid if Nauseous If Any Problems/Questions/Issu: Contact Your Physician, Go to Emergency Room Skin/Wound Care Infection Signs and Symptoms: Increased Redness, Foul Odor of Wound, Increased Drainage, Skin Itchy or Has a Rash, Increased Swelling, Temperature Above 101 F Bathing Instructions: Shower Stitches/[place]/Dermabond Dis: Dermabond Ice Pack: Ice On and Off Site SEAN YANCEY DO Apr 05, 2022 11:38
[2022-04-05] MEDS ORDERED: HYDROmorphone 2 MG/ML VIAL (DILAUDID) ONE (11:43)
[2022-04-05] MEDS ORDERED: HYDROcodone/APAP 5 MG/325 MG (LORTAB) TAB PO ONE (12:45)
== END 2022-04-05 14:50 | disposition home or self-care (01) ==
LOC: SDC 07:39
PROVIDERS: ATTEND Surgery
DX: K40.00 Bilateral inguinal hernia, with obstruction, without gangrene, not specified as recurrent (principal); D17.6 Benign lipomatous neoplasm of spermatic cord; E66.9 Obesity, unspecified; K21.9 Gastro-esophageal reflux disease without esophagitis; Z79.82 Long term (current) use of aspirin; Z87.891 Personal history of nicotine dependence; Z79.899 Other long term (current) drug therapy; Z68.30 Body mass index [BMI] 30.0-30.9, adult
CPT/HCPCS: 49650; 87081; C1781

== ENCOUNTER → 2023-01-17 | Outpatient (CLI) | payer BC ==
[~2023-01-17] MED LIST changes: +ACHD5005 PO; -ENAL10TA16 PO; +ENLP10T PO
--- NOTE | 2023-01-17 10:44 | Diagnostic Imaging Report ---
CLINICAL INDICATION: Patient states he cannot lift his arms up all the way but just fpc. Patient has history of falls. EXAM: MRI of the cervical spine performed without IV contrast. Sequences include sagittal T2, sagittal T1, sagittal T2 fat-sat, and axial T2. COMPARISON: None. FINDINGS: There is no acute cervical spine fracture or dislocation. There are Modic type I degenerative signal changes posteriorly involving the C3-C4 and C4-C5 endplates. There are Modic type II degenerative signal changes involving the posterior aspect of the C2-C3 endplate. There are mildly hypertrophic spurs throughout the cervical spine and multilevel facet arthropathy/hypertrophy. Limited visualization of the posterior fossa is unremarkable. There is localized encroachment upon the cervical cord seen at the C3-C4 and C4-C5 levels. There is questionable intramedullary increased T2 signal seen at the C4-C5 level. There is no significant paraspinal soft tissue abnormality. C1-C2: There are degenerative spurs involving the atlantoodontoid interval anteriorly. There is a marianne-odontoid pannus. There is no significant central canal stenosis. C2-C3: There is moderate left facet arthropathy and mild right facet arthropathy. There is a diffuse disk bulge with left-sided uncinate spurs. There is severe left neuroforaminal narrowing and at least moderate right neuroforaminal narrowing. There is moderate central canal stenosis. C3-C4: There is a diffuse disk bulge with superimposed moderate central posterior disk extrusion/herniation. There are disk spurs extending posteriorly and bilateral uncinate spurs. There is ligamentum flavum buckling. There is severe left facet arthropathy/hypertrophy and mild right facet arthropathy. There is severe central canal stenosis with complete effacement of the thecal sac and marked deformity of the cervical cord. There is severe bilateral neuroforaminal narrowing. C4-C5: There is diffuse disk bulge with small to moderate sized broad posterior disk spurs. There are bilateral uncinate spurs. There is severe left facet arthropathy and mild to moderate right facet arthropathy. There is severe central canal stenosis with complete effacement of the thecal sac and deformity of the cervical cord. There is severe bilateral neuroforaminal narrowing. C5-C6: There is severe left facet arthropathy and mild right facet arthropathy. There is mild central canal stenosis. There is severe bilateral neuroforaminal narrowing. C6-C7: There is moderate bilateral facet arthropathy and ligamentum flavum buckling. There is mild posterior disk bulge with disk bulging into the foraminal regions bilaterally. There is mild to moderate central canal stenosis. There is severe bilateral neuroforaminal narrowing. C7-T1: There is moderate bilateral facet arthropathy. There is a minimal sized posterior disk bulge. There is no significant central canal stenosis. There is no significant neuroforaminal narrowing. IMPRESSION: 1: There is severe multilevel cervical spine degenerative disk disease with multilevel diffuse disk bulges, posterior disk herniation, and disk spurs. 2: There is severe central canal stenosis at the C3-C4 and C4-C5 levels due to diffuse disk bulge and disk spurs which cause marked encroachment upon the cervical cord and deformity. There is questionable intramedullary cervical spinal cord increased T2 signal involving the C4-C5 level. Dictated by: Dictated on workstation # [id number]
== END ==
LOC: RAD 09:06
PROVIDERS: ATTEND Internal Medicine
DX: M50.10 Cervical disc disorder with radiculopathy, unspecified cervical region (principal); M48.02 Spinal stenosis, cervical region
CPT/HCPCS: 72141

== ENCOUNTER 2023-03-31 02:00 | Emergency (ER) | payer BC ==
[~2023-03-31] VITALS: Ht 175.3 cm; Wt 90.7 kg
[2023-03-31 02:23] VITALS: BP 124/84
[2023-03-31] MEDS ORDERED: Tetanus/Diphtheria/Pertussis (Acell) ADULT Vaccine 0.5 ML IM ONE (02:45)
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
--- NOTE | 2023-03-31 07:06 | Diagnostic Imaging Report ---
PROCEDURE: CT chest without contrast. TECHNIQUE: Multiple contiguous axial images were obtained through the chest without the use of intravenous contrast. Auto Exposure Controls were utilized during the CT exam to meet ALARA standards for radiation dose reduction. INDICATION: Trauma, fall with pain in the right ribs. No mediastinal hematoma is identified. No pleural fluid or hemothorax is detected. No pulmonary contusion or pneumothorax is identified. There are fractures involving the right lateral 6th and 7th ribs, nondisplaced. No other fractures are identified. IMPRESSION: Right 6th and 7th lateral rib fractures. The study is otherwise unremarkable. Dictated by: Dictated on workstation # [id number]
--- NOTE | 2023-03-31 07:37 | Diagnostic Imaging Report ---
INDICATION: Fall. Comparison is made with prior exam of 07/02/2020. FINDINGS: There is cardiomegaly. There is some bibasilar subsegmental atelectasis and/or pneumonitis. No pleural effusion or pneumothorax. Mediastinum is unremarkable. IMPRESSION: Bibasilar subsegmental atelectasis and/or pneumonitis. Dictated by: Dictated on workstation # [id number]
--- NOTE | 2023-03-31 07:40 | Diagnostic Imaging Report ---
INDICATION: Pain after fall. FINDINGS: The examination is limited as a true lateral view could not be obtained. There is a small osseous fragment seen along the radial aspect of the distal humerus. The source of this is uncertain. There appears to be an elbow joint effusion. The radial head is intact. Proximal ulna appears to be intact. IMPRESSION: Limited exam due to positioning with findings suspect for fracture however the source of the fracture fragment is uncertain. It does appear to be an elbow joint effusion. Further evaluation with CT of the elbow is recommended. Dictated by: Dictated on workstation # [id number]
--- NOTE | 2023-03-31 07:41 | Diagnostic Imaging Report ---
INDICATION: Pelvic pain. FINDINGS: There are mild degenerative changes in the lumbar spine. The sacrum appears to be intact. SI joints are unremarkable. The obturator rings are intact. Proximal femurs are intact. There are degenerative changes in the hips bilaterally. Soft tissues are unremarkable. IMPRESSION: Degenerative changes of the lower lumbar spine and hips however no acute fracture. Dictated by: Dictated on workstation # [id number]
--- NOTE | 2023-03-31 08:26 | Diagnostic Imaging Report ---
Indication: Right hand pain. Time of Exam: 2:51 AM 3 views of the right hand show metacarpals to be intact. Phalanges are intact. Carpal bones are intact. No fractures are seen. Impression: No acute bony abnormality is detected. Dictated by: Dictated on workstation # [id number]
== END 2023-03-31 04:37 | disposition left against medical advice (07) ==
LOC: EDUNIT# 02:00 → ER 02:05
DX: S01.111A Laceration without foreign body of right eyelid and periocular area, initial encounter (principal); S60.416A Abrasion of right little finger, initial encounter; M54.2 Cervicalgia; Z87.891 Personal history of nicotine dependence; Z79.82 Long term (current) use of aspirin; W18.31XA Fall on same level due to stepping on an object, initial encounter; Y92.480 Sidewalk as the place of occurrence of the external cause
CPT/HCPCS: 70450; 70486; 71045; 71250; 72125; 72170; 73080; 73130; 90471; 90715